=== PATIENT | female | born 1980 | race Caucasian/White ===

== ENCOUNTER 2017-11-29 08:08 | Observation (INO) | payer OTHER ==
[~2017-11-29] VITALS: Ht 160 cm; Wt 96.7 kg
[~2017-11-29 08:08] MED LIST: AMOX-559 PO; ATEN-1 PO; DEXT10TA9 PO; FLUO-177 PO; HYDR-2966 PO
--- NOTE | 2017-11-29 08:17 | ER Report ---
History and Physical Time Seen By MD: 08:15 Hx. of Stated Complaint: patient is reporting similar symptoms to an orbita cellulitis that she had 1 year ago. headache, drainage from right eye and pain when moving right eye HPI/ROS CHIEF COMPLAINT: Right eye pain HISTORY OF PRESENT ILLNESS: 37-year-old comes emergency Department today with several days of pain or right eye primarily extraocular motion some mild discharge mostly clear pain with motion some mild temporal right-sided headache that she's had these symptoms before was diagnosed with a orbital cellulitis unclear if it was septal or preseptal associated get IV antibiotics to see been hematology specialist last time did not see an hematology specialist this time she started getting the same symptoms came right to the emergency department no nausea vomiting diarrhea fever chills or additional complaints noted no visual changes REVIEW OF SYSTEMS: Respiratory: No cough, no dyspnea. Cardiovascular: No chest pain, no palpitations. Gastrointestinal: No vomiting, no abdominal pain. Musculoskeletal: No back pain. Remainder of the 14 system rev: Yes Allergies: Uncoded Allergies: DERMABOND (Adverse Reaction, Unknown, 10/04/16) Home Meds Reported Medications Amphet Asp/Amphet/D-Amphet (ADDERALL 10 MG TABLET) 10 Mg Tablet, 10 MG PO QDAY 10/04/16 Hydrochlorothiazide (HYDROCHLOROTHIAZIDE) 25 Mg Tablet, 1 TAB PO QDAY, TAB 10/04/16 Atenolol (ATENOLOL) 50 Mg Tablet, 25 TAB PO QDAY, TAB 10/04/16 Fluoxetine Hcl (FLUOXETINE HCL) 20 Mg Capsule, 60 MG PO QDAY, CAPSULE 10/04/16 Discontinued Scripts Amoxicillin/Pot Clav 875-125 Mg Tab (AUGMENTIN 875-125 TABLET) 1 Each Tablet, 1 TAB PO Q12H, #20 TAB Prov:ERIC REYES COMMODITY SPECIALIST 10/04/16 Reviewed Nurses Notes: Yes Old Medical Records Reviewed: Yes Hx Substance Use Disorder: Yes (OCC POT) Hx Alcohol Use: Yes (OCC) Constitutional Vital Sign - Last 24 Hours 11/29/17 11/29/17 11/29/17 11/29/17 08:11 09:43 10:30 11:21 Temp 97.8 Pulse 62 59 57 Resp 20 20 20 B/P (MAP) 189/112 193/109 (137) 178/108 (131) 157/99 (118) Pulse Ox 95 97 97 O2 Delivery Room Air Room Air Room Air Physical Exam General Appearance: [The patient is alert, has no immediate need for airway protection and no current signs of toxicity.] [ ] Eyes: Extraocular motor intact however pain with lateral gaze of the right eye visual acuity pending mild clear serous discharge noted from the eye no proptosis correctly looking Respiratory: Chest is non tender, lungs are clear to auscultation. Cardiac: regular rate and rhythm [ ] Gastrointestinal: Abdomen is soft and non tender, no masses, bowel sounds normal. Musculoskeletal: Neck: Neck is supple and non tender. Extremities have full range of motion and are non tender. Skin: No rashes or lesions. [ ] DIFFERENTIAL DIAGNOSIS: After history and physical exam differential diagnosis was considered for cellulitis or orbital cellulitis periorbital preseptal cellulitis sinus infection Medical Decision Making Data Points Result Diagram: 11/29/17 0823 11/29/17 0823 Laboratory Hematology Test 11/29/17 08:23 Red Blood Count 5.05 M/uL (4.17-5.56) Mean Corpuscular Volume 79.0 fL (80.0-96.0) Mean Corpuscular Hemoglobin 26.5 pg (26.0-33.0) Mean Corpuscular Hemoglobin Concent 33.6 g/dL (32.0-36.0) Red Cell Distribution Width 16.6 % (11.5-14.5) Mean Platelet Volume 7.5 fL (7.2-11.1) Neutrophils (%) (Auto) 68.0 % (39.4-72.5) Lymphocytes (%) (Auto) 24.6 % (17.6-49.6) Monocytes (%) (Auto) 6.1 % (4.1-12.4) Eosinophils (%) (Auto) 0.6 % (0.4-6.7) Basophils (%) (Auto) 0.7 % (0.3-1.4) Nucleated RBC Relative Count (auto) 0.1 /100WBC Neutrophils # (Auto) 5.1 K/uL (2.0-7.4) Lymphocytes # (Auto) 1.8 K/uL (1.3-3.6) Monocytes # (Auto) 0.5 K/uL (0.3-1.0) Eosinophils # (Auto) 0.0 K/uL (0.0-0.5) Basophils # (Auto) 0.1 K/uL (0.0-0.1) Nucleated RBC Absolute Count (auto) 0.01 K/uL Sodium Level 141 mmol/L (137-145) Potassium Level 4.3 mmol/L (3.5-5.0) Chloride Level 103 mmol/L (98-107) Carbon Dioxide Level 24 mmol/L (22-31) Blood Urea Nitrogen 11 mg/dl (7-18) Creatinine 0.70 mg/dl (0.52-1.04) Glomerular Filtration Rate Calc > 60.0 Random Glucose 97 mg/dl (75-110) Calcium Level 9.8 mg/dl (8.4-10.2) Total Bilirubin 0.3 mg/dl (0.2-1.3) Aspartate Amino Transf (AST/SGOT) 27 U/L (0-35) Alanine Aminotransferase (ALT/SGPT) 27 U/L (0-56) Alkaline Phosphatase 119 U/L (0-126) Total Protein 7.7 gm/dl (6.3-8.2) Albumin 4.4 g/dl (3.5-5.0) Chemistry Test 11/29/17 08:23 White Blood Count 7.5 k/uL (4.5-11.0) Red Blood Count 5.05 M/uL (4.17-5.56) Hemoglobin 13.4 g/dL (12.0-16.0) Hematocrit 39.9 % (34.0-47.0) Mean Corpuscular Volume 79.0 fL (80.0-96.0) Mean Corpuscular Hemoglobin 26.5 pg (26.0-33.0) Mean Corpuscular Hemoglobin Concent 33.6 g/dL (32.0-36.0) Red Cell Distribution Width 16.6 % (11.5-14.5) Platelet Count 347 K/uL (150-450) Mean Platelet Volume 7.5 fL (7.2-11.1) Neutrophils (%) (Auto) 68.0 % (39.4-72.5) Lymphocytes (%) (Auto) 24.6 % (17.6-49.6) Monocytes (%) (Auto) 6.1 % (4.1-12.4) Eosinophils (%) (Auto) 0.6 % (0.4-6.7) Basophils (%) (Auto) 0.7 % (0.3-1.4) Nucleated RBC Relative Count (auto) 0.1 /100WBC Neutrophils # (Auto) 5.1 K/uL (2.0-7.4) Lymphocytes # (Auto) 1.8 K/uL (1.3-3.6) Monocytes # (Auto) 0.5 K/uL (0.3-1.0) Eosinophils # (Auto) 0.0 K/uL (0.0-0.5) Basophils # (Auto) 0.1 K/uL (0.0-0.1) Nucleated RBC Absolute Count (auto) 0.01 K/uL Glomerular Filtration Rate Calc > 60.0 Calcium Level 9.8 mg/dl (8.4-10.2) Total Bilirubin 0.3 mg/dl (0.2-1.3) Aspartate Amino Transf (AST/SGOT) 27 U/L (0-35) Alanine Aminotransferase (ALT/SGPT) 27 U/L (0-56) Alkaline Phosphatase 119 U/L (0-126) Total Protein 7.7 gm/dl (6.3-8.2) Albumin 4.4 g/dl (3.5-5.0) ED Course/Re-evaluation ED Course ED clinical course 37-year-old female came in with pain with extraocular motion no visual acuity issues initial CAT scan looking for potential preseptal or orbital cellulitis came back showing irritation inflammation consistent with possible Graves' versus MS or pseudotumor or tumor process and medial rectus muscle of the right eye this was noted also prevalent in several months ago in the left eye unlikely this is infectious etiology more likely again this is either Graves' MS or some type of pseudotumor secondary to this we will go ahead and MRI her head and orbits were attempted for definitive diagnosis also showing some density issues within the head CT as well again concerning for potential MS Follow-up MRI does demonstrate consistent changes of either vasculitis atypical MS or demyelinating process the 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 David's are also consideration patient will be admitted today I consult with ophthalmology and neurology recommending 1000 mg of Solu- Medrol as an inpatient and then she'll follow-up with 5 days as an outpatient and neuro consult after patient understands the plan is resting comfortably at time of admission Decision to Disposition Date: November 29, 2017 Decision to Disposition Time: 14:34 Depart Departure Latest Vital Signs Vital Signs Date Time Temp Pulse Resp B/P (MAP) Pulse Ox O2 Delivery O2 Flow Rate FiO2 11/29/17 11:21 57 20 157/99 (118) 97 Room Air 11/29/17 08:11 97.8 Impression: Primary Impression: Pseudotumor Condition: Condition Unchanged Disposition: Admitted from ER Referrals: JAMIE WEEMS MD (PCP) BENJAMIN ALLEN MD November 29, 2017 08:17
[2017-11-29 08:31] LABS: PLATELET COUNT, AUTOMATED 347 K/uL (150-450)
[2017-11-29] MEDS ORDERED: IOPAMIDOL 76% 75 ML INFUS BTL 75 ML ONE (08:32)
[2017-11-29] MEDS ORDERED: HYDROmorphone* 1 MG/ML 1 MG/ML ML IVP ONE (09:10)
[2017-11-29] MEDS ORDERED: cloNIDine HCL 0.1 MG TAB PO ONE (10:00)
--- NOTE | 2017-11-29 10:28 | RADIOLOGY IMAGING REPORT ---
FACILITY: [facility] PATIENT NAME: Tracy Lombardi : 1980 MR: [id number] V: [id number] EXAM DATE: ORDERING PHYSICIAN: BENJAMIN ALLEN TECHNOLOGIST: Location: [facility] Patient: Tracy Lombardi : 1980 Visit/Account:[id number] Date of Sevice: 11/29/2017 EXAMINATION: Head CT without intravenous contrast History: Right eye pain with extraocular motion. TECHNIQUE: Contiguous axial images were obtained from the skull base to the vertex without intraven ous contrast. One of the following dose optimization techniques was utilized in the performance of th is exam: Automated exposure control; adjustment of the mA and/or kV according to the patient's size; or use of an iterative reconstruction technique. Specific details can be referenced in the facility 's radiology CT exam operational policy. COMPARISON STUDIES: none FINDINGS: Visualized mastoid air cells / paranasal sinuses: negative Calvarium and scalp: negative White matter: Mild patchy areas of low-attenuation in the white matter. Dural venous sinuses / arterial structures: negative Ventricles / sulci / fissures: negative Masses / hemorrhage / midline shift: negative Extra-axial spaces: negative IMPRESSION: 1. No evidence of an intracranial mass, hemorrhage or acute ischemia. 2. There are several patchy areas of low density in the white matter which are nonspecific. These m ay represent sequela of migraine headaches, prior trauma or demyelination. Prior episode of ischemia could also be considered. MRI could further evaluate. Report Dictated By: Baron Stern MD at 11/29/2017 10:22 AM Report E-Signed By: Baron Stern MD at 11/29/2017 10:25 AM [id number]
--- NOTE | 2017-11-29 10:39 | RADIOLOGY IMAGING REPORT ---
[place] [facility] [place] NAME: Tracy Lombardi : 1980 MR: [id number] V: [id number] EXAM DATE: ORDERING PHYSICIAN: BENJAMIN ALLEN TECHNOLOGIST: Location: [facility] [place] Patient: Tracy Lombardi : 1980 Visit/Account:[id number] Date of Sevice: 11/29/2017 EXAMINATION: Orbit CT with IV contrast History: Right eye pain with extraocular movement COMPARISON STUDIES: 10/04/2016 TECHNIQUE: Axial images were obtained from the superior aspect of the orbits through the inferior as pect of mandible. Coronal reformatted images were obtained from the axial source data. No IV contrast was administered. One of the following dose optimization techniques was utilized in the performance of this exam: Automated exposure control; adjustment of the mA and/or kV according to the patient's s ize; or use of an iterative reconstruction technique. Specific details can be referenced in the [facility]'s radiology CT exam operational policy. Contrast: 75 of IV [id number] FINDINGS: There is enlargement of the medial rectus muscle on the right. The orbits are otherwise negative. U beena review of the prior study, the left medial rectus appears enlarged but now has normal caliber. T he retro-orbital fat and optic nerves appear normal. Globes are unremarkable. IMPRESSION: Enlargement of the right medial rectus muscle which may be due to graves I disease or idi opathic orbital inflammatory disease. Clinical correlation is suggested. Report Dictated By: Baron Stern MD at 11/29/2017 10:25 AM Report E-Signed By: Baron Stern MD at 11/29/2017 10:35 AM WSN:[id number]
[2017-11-29] MEDS ORDERED: NS(*) 0.9% 1000 ML BAG 1,000 ML IV ONE (11:25)
[2017-11-29] MEDS ORDERED: GADOBENATE 529MG/1ML 15ML VIAL IVP ONE (12:00)
--- NOTE | 2017-11-29 13:45 | RADIOLOGY IMAGING REPORT ---
FACILITY: [facility] PATIENT NAME: Tracy Lombardi : 1980 MR: [id number] V: [id number] EXAM DATE: ORDERING PHYSICIAN: BENJAMIN ALLEN TECHNOLOGIST: Location: [facility] Patient: Tracy Lombardi : 1980 Visit/Account:[id number] Date of Sevice: 11/29/2017 BRAIN W W/O CONTRAST, ORBIT FACE NECK W W/O CONTRAST Provided history: Right orbital pain. Abnormal head CT. Rule out MS. Additional pertinent history: none TECHNIQUE: Multiplanar multisequence brain MRI was performed without and with intravenous contrast Contrast dose: 15 mL of MultiHance. Additional focused sequences: HIgh resolution axial and coronal sequences on the orbits and optical pathways COMPARISON STUDIES: CT earlier today. FINDINGS: Brain volume: Normal Acute ischemia: None Chronic cortical and ganglionic ischemia: none significant Hemorrhage: None Masses / edema: None White matter lesions : There are multiple peripheral small and moderate sized T2 hyperintensities in both cerebral hemispheres, much more than is typical for age. There is sparing of the periventricula r white matter and the subcortical U fibers. There is also sparing of brainstem and posterior fossa. Temporal lobes are mostly spared. These do not demonstrate enhancement after gadolinium. Vessels: Normal Extra-axial: None Calvarium / scalp: Negative Skull base / infratemporal fossa: negative Visualized sinuses / orbits / upper neck: Detailed study of the orbits reveals prominent asymmetric fusiform enlargement and hyperintensity involving the right medial rectus muscle which demonstrates i ntense enhancement after gadolinium. There is contiguous abnormal enhancement of the tendon as well. There is also abnormal indistinct adjacent enhancement in the retrobulbar fat and along the surface o f the optic nerve sheath. The rest of the extraocular muscles are normal. Lacrimal gland is normal. G lobes are normal. There is no posterior extension to involve the cavernous sinus. IMPRESSION: 1. The brain reveals no evidence of hemorrhage, mass or acute ischemia. White matter changes are muc h more than is typical. The pattern would be more consistent with small vessel disease than demyelina tion. Considerations would include sequela of vasculitis,, gated migraine, possibly atypical MS. 2. 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 Sarcoid and David's are considerations but also usually bilater al. A lymphoproliferative process is possible but I think less likely. Pertinent negative is absence of extension to involve the cavernous sinus. Report Dictated By: Sheng Peralta MD at 11/29/2017 1:20 PM Report E-Signed By: Sheng Peralta MD at 11/29/2017 1:40 PM WSN:[id number]
--- NOTE | 2017-11-29 13:46 | RADIOLOGY IMAGING REPORT ---
FACILITY: [facility] [place] PATIENT NAME: Tracy Lombardi : 1980 MR: [id number] V: [id number] EXAM DATE: ORDERING PHYSICIAN: BENJAMIN ALLEN TECHNOLOGIST: Location: [facility] [place] Patient: Tracy Lombardi : 1980 Visit/Account:[id number] Date of Sevice: 11/29/2017 BRAIN W W/O CONTRAST, ORBIT FACE NECK W W/O CONTRAST Provided history: Right orbital pain. Abnormal head CT. Rule out MS. Additional pertinent history: none TECHNIQUE: Multiplanar multisequence brain MRI was performed without and with intravenous contrast Contrast dose: 15 mL of MultiHance. Additional focused sequences: HIgh resolution axial and coronal sequences on the orbits and optical pathways COMPARISON STUDIES: CT earlier today. FINDINGS: Brain volume: Normal Acute ischemia: None Chronic cortical and ganglionic ischemia: none significant Hemorrhage: None Masses / edema: None White matter lesions : There are multiple peripheral small and moderate sized T2 hyperintensities in both cerebral hemispheres, much more than is typical for age. There is sparing of the periventricula r white matter and the subcortical U fibers. There is also sparing of brainstem and posterior fossa. Temporal lobes are mostly spared. These do not demonstrate enhancement after gadolinium. Vessels: Normal Extra-axial: None Calvarium / scalp: Negative Skull base / infratemporal fossa: negative Visualized sinuses / orbits / upper neck: Detailed study of the orbits reveals prominent asymmetric fusiform enlargement and hyperintensity involving the right medial rectus muscle which demonstrates i ntense enhancement after gadolinium. There is contiguous abnormal enhancement of the tendon as well. There is also abnormal indistinct adjacent enhancement in the retrobulbar fat and along the surface o f the optic nerve sheath. The rest of the extraocular muscles are normal. Lacrimal gland is normal. G lobes are normal. There is no posterior extension to involve the cavernous sinus. IMPRESSION: 1. The brain reveals no evidence of hemorrhage, mass or acute ischemia. White matter changes are muc h more than is typical. The pattern would be more consistent with small vessel disease than demyelina tion. Considerations would include sequela of vasculitis,, gated migraine, possibly atypical MS. 2. 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 Sarcoid and David's are considerations but also usually bilater al. A lymphoproliferative process is possible but I think less likely. Pertinent negative is absence of extension to involve the cavernous sinus. Report Dictated By: Sheng Peralta MD at 11/29/2017 1:20 PM Report E-Signed By: Sheng Peralta MD at 11/29/2017 1:40 PM WSN:[id number]
[2017-11-29] MEDS ORDERED: ACETAMINOPHEN 500 MG TAB PO ONE (15:00)
[2017-11-29 15:13] VITALS: BP 192/114
[2017-11-29] MEDS ORDERED: ATEN-1 PO (15:20)
[2017-11-29] MEDS ORDERED: HYDR-2966 PO (15:21)
--- NOTE | 2017-11-29 16:15 | History & Physical ---
History of Present Illness Chief Complaint Right eye pain History of Present Illness This patient presented to the emergency room complaining of right eye pain and difficulty with right eye movement. Her symptoms started abruptly last evening. History Problems: (1) Cellulitis and abscess of face Status: Acute Home Meds Reported Medications Hydrochlorothiazide (HYDROCHLOROTHIAZIDE) 25 Mg Tablet, 0.5 TAB PO QPM, TAB 11/29/17 Atenolol (ATENOLOL) 50 Mg Tablet, 0.5 TAB PO QPM, TAB 11/29/17 Hydrochlorothiazide (HYDROCHLOROTHIAZIDE) 25 Mg Tablet, 1.5 TAB PO QDAY, TAB 10/04/16 Atenolol (ATENOLOL) 50 Mg Tablet, 37.5 TAB PO QAM, TAB 10/04/16 Discontinued Reported Medications Amphet Asp/Amphet/D-Amphet (ADDERALL 10 MG TABLET) 10 Mg Tablet, 10 MG PO QDAY 10/04/16 Fluoxetine Hcl (FLUOXETINE HCL) 20 Mg Capsule, 60 MG PO QDAY, CAPSULE 10/04/16 Discontinued Scripts Amoxicillin/Pot Clav 875-125 Mg Tab (AUGMENTIN 875-125 TABLET) 1 Each Tablet, 1 TAB PO Q12H, #20 TAB Prov:ERIC REYES SAW SHARPENER 10/04/16 Allergies: Uncoded Allergies: DERMABOND (Adverse Reaction, Unknown, 10/04/16) Hx Smoking: No Caffeine Intake: Coffee Caffeine/Cups Per Day: TWO CUPS Hx Alcohol Use: Yes (OCC) Hx Substance Use Disorder: Yes (OCC POT) Review of Systems All Systems Reviewed/Normal: Yes, Except as Noted Musculoskeletal: Pain Exam Vital Signs Vital Signs Date Time Temp Pulse Resp B/P (MAP) Pulse Ox O2 Delivery O2 Flow Rate FiO2 11/29/17 15:13 97.6 58 16 192/114 (140) 98 Room Air Neuro: Other (Right eye palsey.) Eyes: PERRLA Cardiovascular: Regular Rate and Rhythm Respiratory: Clear to Auscultation Extremities: No Edema Integumentary: No Cyanosis Medical Decision Making Data Points Result Diagram: 11/29/1782211/29/17822 EKG / Imaging Imaging MRI brain and orbits reviewed. Assessment and Plan Problems: (1) White matter abnormality on MRI of brain Assessment & Plan: Her MRI showed findings consistent with white matter changes and were described as vasculitis or demyelinating process. The emergency room physician did speak with Dr. Giordano (neurology), who recommended Solu-Medrol 1gm daily for 5 days and follow up early next week. We did place her on observation overnight to be sure she tolerates this large dose, but she can likely continue this infusions through special procedures. (2) Pseudotumor Status: Acute Assessment & Plan: These results were reviewed with ophthalmology and neurology from the emergency room. The recommendations are as above. Venous Thromboembolism Antithrombotics Is Pt On Any Antithrombotics?: No Exam Sepsis Risk: No Definite Risk NAPOLEON GODOY DO November 29, 2017 16:15
[2017-11-29] MEDS ORDERED: methylPREDNIS SUC* 1000 MG/8ML 1,000 MG in NS(*) 0.9% 250 ML BAG 250 ML IVPB SCH (16:40)
[2017-11-29] MEDS ORDERED: HYDROCHLOROTHIAZIDE 25 MG TAB PO SCH (17:00)
[2017-11-29] MEDS ORDERED: ATENOLOL 50 MG TAB PO SCH (17:00)
[2017-11-29 20:40] VITALS: BP 139/104
[2017-11-30 05:12] VITALS: BP 130/102
[2017-11-30 07:07] VITALS: BP 136/116
[2017-11-30 07:17] VITALS: BP 138/98
[2017-11-30] MEDS ORDERED: LORazepam 2 MG/ML VIAL IVP PRN (09:00)
[2017-11-30] MEDS ORDERED: ATENOLOL 50 MG TAB PO SCH (09:00)
[2017-11-30] MEDS ORDERED: methylPREDNIS SUC* 1000 MG/8ML 1,000 MG in NS(*) 0.9% 250 ML BAG 250 ML IVPB SCH (09:00)
[2017-11-30] MEDS ORDERED: HYDROCHLOROTHIAZIDE 25 MG TAB PO SCH (09:00)
--- NOTE | 2017-11-30 09:56 | Hospitalist Progress Note ---
Subjective Progress Notes Subjective She reports feeling much improved. Pain resolved. Physical Exam Vital Signs Date Time Temp Pulse Resp B/P (MAP) Pulse Ox O2 Delivery O2 Flow Rate FiO2 11/30/17 09:37 94 Room Air 11/30/17 07:17 138/98 (111) 11/30/17 07:07 98.1 76 16 Intake and Output 12/01/17 07:00 Intake Total 120 ml Balance 120 ml Intake Oral 120 ml General Appearance: Alert, Awake Neuro: Other (no focal motor deficits noted) Eyes: Other (pupils equal and reactive/she now appears to have essentially normal EOM bilaterally/she does still try to close her right eyelid with right lateral gaze) Cardiovascular: Regular Rate and Rhythm Respiratory: Clear to Auscultation Psych: Alert & Oriented X3 Result Diagram: 11/29/1782211/29/17822 Assessment and Plan Problems: (1) White matter abnormality on MRI of brain Assessment & Plan: Her MRI showed findings consistent with probable pseudotumor involving right medial rectus. She also has some white matter changes which appeared to be more prominent than expected. Differential includes atypical MS, vasculitis, small vessel ischemia. The emergency room physician did speak with Dr. Giordano (neurology), who recommended Solu-Medrol 1gm daily for 5 days and close follow up early next week. We did place her on observation overnight to be sure she tolerates this large dose, but she can likely continue this infusion through special procedures. (2) Pseudotumor Status: Acute Assessment & Plan: These results were reviewed with ophthalmology and neurology from the emergency room. The recommendations are as above. Exam Sepsis Risk: No Definite Risk JANAY HURD MD November 30, 2017 09:56
[2017-11-30 10:52] VITALS: BP 130/96
[2017-11-30] MEDS ORDERED: LOR1 PO (11:04)
[2017-11-30] MEDS ORDERED: PRED20TA6 PO ×2 (11:04→11:05)
--- NOTE | 2017-11-30 11:16 | Hospitalist Depart ---
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 She also has some white matter changes which appeared to be more prominent than expected. Differential includes atypical MS, vasculitis, small vessel ischemia. It appears she may have had a similar, but less severe episode in the Spring of 2016 as well. The emergency room physician did speak with Dr. Giordano (neurology in [place], [place]), who recommended Solu-Medrol 1gm daily for 5 days and close follow up early next week. We did admit her and place her on observation overnight to be sure she tolerated this large dose. She did do fairly well with the infusions. She will complete the 5 days as an outpatient through [facility]. She will then start prednisone 80mg daily. She will follow up with her primary care physician at the [facility] early next week and arrange for neurology/ ophthalmology follow up at that time. She should be able to start a weaning regimen of her steroids as well. (2) Pseudotumor Status: Acute Hospital Course & Plan: Her results/findings were reviewed with ophthalmology and neurology from the [facility] emergency room. Their recommendations are as noted above. Departure Weight (Pounds): 213 Weight (Ounces): 3.0 Result Diagram: 11/29/17 0823 11/29/17 0823 Item Value Date Time Albumin 4.4 g/dl 11/29/17 0823 Total Protein 7.7 gm/dl 11/29/17 0823 Alkaline Phosphatase 119 U/L 11/29/17 0823 Alanine Aminotransferase (ALT/SGPT) 27 U/L 11/29/17 0823 Aspartate Amino Transf (AST/SGOT) 27 U/L 11/29/17 0823 Total Bilirubin 0.3 mg/dl 11/29/17 0823 Calcium Level 9.8 mg/dl 11/29/17 0823 Imaging PATIENT NAME: Tracy Lombardi : 1980 MR: [id number] V: [id number] EXAM DATE: ORDERING PHYSICIAN: BENJAMIN ALLEN TECHNOLOGIST: Location: [facility] Patient: Tracy Lombardi : 1980 Visit/Account:[id number] Date of Sevice: 11/29/2017 EXAMINATION: Orbit CT with IV contrast History: Right eye pain with extraocular movement COMPARISON STUDIES: 10/04/2016 TECHNIQUE: Axial images were obtained from the superior aspect of the orbits through the inferior aspect of mandible. Coronal reformatted images were obtained from the axial source data. No IV contrast was administered. One of the following dose optimization techniques was utilized in the performance of this exam: Automated exposure control; adjustment of the mA and/or kV according to the patient's size; or use of an iterative reconstruction technique. Specific details can be referenced in the facility's radiology CT exam operational policy. Contrast: 75 of IV Isovue-370 FINDINGS: There is enlargement of the medial rectus muscle on the right. The orbits are otherwise negative. Upon review of the prior study, the left medial rectus appears enlarged but now has normal caliber. The retro-orbital fat and optic nerves appear normal. Globes are unremarkable. IMPRESSION: Enlargement of the right medial rectus muscle which may be due to graves I disease or idiopathic orbital inflammatory disease. Clinical correlation is suggested. Report Dictated By: Baron Stern MD at 11/29/2017 10:25 AM Report E-Signed By: Baron Stern MD at 11/29/2017 10:35 AM WSN:[id number] PATIENT NAME: Tracy Lombardi : 1980 MR: [id number] V: [id number] EXAM DATE: ORDERING PHYSICIAN: BENJAMIN ALLEN TECHNOLOGIST: Location: [facility] Patient: Tracy Lombardi : 1980 Visit/Account:[id number] Date of Sevice: 11/29/2017 EXAMINATION: Head CT without intravenous contrast History: Right eye pain with extraocular motion. TECHNIQUE: Contiguous axial images were obtained from the skull base to the vertex without intravenous contrast. One of the following dose optimization techniques was utilized in the performance of this exam: Automated exposure control; adjustment of the mA and/or kV according to the patient's size; or use of an iterative reconstruction technique. Specific details can be referenced in the facility's radiology CT exam operational policy. COMPARISON STUDIES: none FINDINGS: Visualized mastoid air cells / paranasal sinuses: negative Calvarium and scalp: negative White matter: Mild patchy areas of low-attenuation in the white matter. Dural venous sinuses / arterial structures: negative Ventricles / sulci / fissures: negative Masses / hemorrhage / midline shift: negative Extra-axial spaces: negative IMPRESSION: 1. No evidence of an intracranial mass, hemorrhage or acute ischemia. 2. There are several patchy areas of low density in the white matter which are nonspecific. These may represent sequela of migraine headaches, prior trauma or demyelination. Prior episode of ischemia could also be considered. MRI could further evaluate. Report Dictated By: Baron Stern MD at 11/29/2017 10:22 AM Report E-Signed By: Baron Stern MD at 11/29/2017 10:25 AM WSN:[id number] PATIENT NAME: Tracy Lombardi : 1980 MR: [id number] V: [id number] EXAM DATE: ORDERING PHYSICIAN: BENJAMIN ALLEN TECHNOLOGIST: Location: [facility] Patient: Tracy Lombardi : 1980 Visit/Account:[id number] Date of Sevice: 11/29/2017 BRAIN W W/O CONTRAST, ORBIT FACE NECK W W/O CONTRAST Provided history: Right orbital pain. Abnormal head CT. Rule out MS. Additional pertinent history: none TECHNIQUE: Multiplanar multisequence brain MRI was performed without and with intravenous contrast Contrast dose: 15 mL of MultiHance. Additional focused sequences: HIgh resolution axial and coronal sequences on the orbits and optical pathways COMPARISON STUDIES: CT earlier today. FINDINGS: Brain volume: Normal Acute ischemia: None Chronic cortical and ganglionic ischemia: none significant Hemorrhage: None Masses / edema: None White matter lesions : There are multiple peripheral small and moderate sized T2 hyperintensities in both cerebral hemispheres, much more than is typical for age. There is sparing of the periventricular white matter and the subcortical U fibers. There is also sparing of brainstem and posterior fossa. Temporal lobes are mostly spared. These do not demonstrate enhancement after gadolinium. Vessels: Normal Extra-axial: None Calvarium / scalp: Negative Skull base / infratemporal fossa: negative Visualized sinuses / orbits / upper neck: Detailed study of the orbits reveals prominent asymmetric fusiform enlargement and hyperintensity involving the right medial rectus muscle which demonstrates intense enhancement after gadolinium. There is contiguous abnormal enhancement of the tendon as well. There is also abnormal indistinct adjacent enhancement in the retrobulbar fat and along the surface of the optic nerve sheath. The rest of the extraocular muscles are normal. Lacrimal gland is normal. Globes are normal. There is no posterior extension to involve the cavernous sinus. IMPRESSION: 1. The brain reveals no evidence of hemorrhage, mass or acute ischemia. White matter changes are much more than is typical. The pattern would be more consistent with small vessel disease than demyelination. Considerations would include sequela of vasculitis,, gated migraine, possibly atypical MS. 2. 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 Sarcoid and David's are considerations but also usually bilateral. A lymphoproliferative process is possible but I think less likely. Pertinent negative is absence of extension to involve the cavernous sinus. Report Dictated By: Sheng Peralta MD at 11/29/2017 1:20 PM Report E-Signed By: Sheng Peralta MD at 11/29/2017 1:40 PM WSN:[id number] Condition: Improved Discharge: Home Time Spent: > 30 min Discharge Instructions Home Meds Active Scripts Methylprednisolone Sod Succ (SOLU-MEDROL 1,000 MG VIAL) 1,000 Mg/8 Ml Soln, 1000 MG IV DAILY for 3 Days, VIAL 0 Refills This will be given through [facility]. Prov:JANAY HURD MD 11/30/17 Prednisone (PREDNISONE) 20 Mg Tablet, 80 MG PO QDAY, #40 TAB 0 Refills To start on Monday12/05/17 Prov:JANAY HURD MD 11/30/17 Lorazepam (LORAZEPAM) 1 Mg Tab, 1 MG PO Q6H Y for ANXIETY/INSOMNIA, #14 TAB 0 Refills Prov:JANAY HURD MD 11/30/17 Reported Medications Hydrochlorothiazide (HYDROCHLOROTHIAZIDE) 25 Mg Tablet, 0.5 TAB PO QPM, TAB 11/29/17 Atenolol (ATENOLOL) 50 Mg Tablet, 0.5 TAB PO QPM, TAB 5/2/18 Hydrochlorothiazide (HYDROCHLOROTHIAZIDE) 25 Mg Tablet, 1.5 TAB PO QDAY, TAB 10/04/16 Atenolol (ATENOLOL) 50 Mg Tablet, 37.5 TAB PO QAM, TAB 10/04/16 Discontinued Reported Medications Amphet Asp/Amphet/D-Amphet (ADDERALL 10 MG TABLET) 10 Mg Tablet, 10 MG PO QDAY 10/04/16 Fluoxetine Hcl (FLUOXETINE HCL) 20 Mg Capsule, 60 MG PO QDAY, CAPSULE 10/04/16 Discontinued Scripts Amoxicillin/Pot Clav 875-125 Mg Tab (AUGMENTIN 875-125 TABLET) 1 Each Tablet, 1 TAB PO Q12H, #20 TAB Prov:ERIC REYES MAGNETIC TESTER 10/04/16 Diet: Regular Activity: As Tolerated Special Instructions: Follow up with [facility] for your infusion starting tomorrow (12/01/17) at 1300, please show up at 12:45. Return to [facility] ER if any problems. The prednisone will start on Monday12/05/17. Copies to: [facility] Venous Thromboembolism Antithrombotics Is Pt On Any Antithrombotics?: No JANAY HURD MD November 30, 2017 11:16
[2017-11-30] MEDS ORDERED: [UNRECOGNIZED DRUG - CODE] IV (11:17)
[2017-12-01] MEDS ORDERED: INFLUENZA VIRUS VAC 0.5 ML SYR IM ONLY ONE (15:55)
== END 2017-11-30 11:05 | disposition home or self-care (01) ==
LOC: ER 08:12 → INTOOBSV 14:42 → MED 14:42
PROVIDERS: ADMIT Family Medicine; ATTEND Family Medicine
DX: H05.111 Granuloma of right orbit (principal); R93.8 Abnormal findings on diagnostic imaging of other specified body structures
CPT/HCPCS: 70450; 70481; 70543; 70553; 85025; 99285; A9577; G0378; J2930; J7030; J7050; Q9967; 82040; 82247; 82310; 82374; 82435; 82565; 82947; 84075; 84132; 84155; 84295; 84450; 84460; 84520

== ENCOUNTER 2017-12-01 14:30 | Outpatient (RCR) | payer OTHER ==
[~2017-12-01 14:30] MED LIST changes: +LOR1 PO; +PRED20TA6 PO; +[UNRECOGNIZED DRUG - CODE] IV
[2017-12-01 14:58] VITALS: BP 125/81
[2017-12-01] MEDS: methylPREDNIS SUC* 1000 MG/8ML 1,000 MG in NS(*) 0.9% 250 ML BAG 250 ML IV PRN (15:00)
[2017-12-01] MEDS ORDERED: LIDOCAINE/SOD BICARB 8.4% SYR ID PRN (15:15)
[2017-12-01] MEDS ORDERED: DEXTROSE 5%(*) 100 ML BAG 100 ML IVPB PRN (15:15)
[2017-12-01] MEDS: NS(*) 0.9% 100 ML BAG 100 ML IVPB PRN (16:26)
[2017-12-01 17:03] VITALS: BP 136/84
[2017-12-02] MEDS: NS(*) 0.9% 100 ML BAG 100 ML IVPB PRN (14:19)
[2017-12-02 14:23] VITALS: BP 138/85
[2017-12-02] MEDS: methylPREDNIS SUC* 1000 MG/8ML 1,000 MG in NS(*) 0.9% 250 ML BAG 250 ML IV PRN (14:29)
[2017-12-02 16:00] VITALS: BP 149/89
[2017-12-03 14:25] VITALS: BP 137/82
[2017-12-03] MEDS: NS(*) 0.9% 100 ML BAG 100 ML IVPB PRN (14:36)
[2017-12-03] MEDS: methylPREDNIS SUC* 1000 MG/8ML 1,000 MG in NS(*) 0.9% 250 ML BAG 250 ML IV PRN (14:37)
[2017-12-03 15:57] VITALS: BP 142/92
== END 2017-12-28 10:52 | disposition home or self-care (01) ==
LOC: SPU 14:30
PROVIDERS: ATTEND Family Medicine
DX: H05.119 Granuloma of unspecified orbit (principal)
CPT/HCPCS: 96365; 96366; J2930; J7050

== ENCOUNTER → 2018-03-30 | Outpatient (CLI) | payer OTHER | LOC: LAB 15:08 | PROVIDERS: ATTEND Obstetrics & Gynecology | DX: N92.6 Irregular menstruation, unspecified (principal) | CPT/HCPCS: 36415; 84702 ==

== ENCOUNTER → 2018-04-23 | Outpatient (CLI) | payer MEDICAID ==
[2018-04-23 12:26] LABS: PLATELET COUNT, AUTOMATED 430 K/uL (150-450)
--- NOTE | 2018-04-23 12:50 | EKG ---
FACILITY: [facility] [place] PATIENT NAME: LYLY COON : [id number] MR: [id number] V: [id number] EXAM DATE: ORDERING PHYSICIAN: KATRIN FIORE TECHNOLOGIST: NEWTON Smith Reason : HYPERTENSION Blood Pressure : / mmHG Vent. Rate : 083 BPM Atrial Rate : 083 BPM P-R Int : 140 ms QRS Dur : 078 ms QT Int : 374 ms P-R-T Axes : 072 054 047 degrees QTc Int : 439 ms Normal sinus rhythm Nonspecific T wave abnormality Abnormal ECG No previous ECGs available Confirmed by KATRIN ACEVEDO ([id number]) on 04/23/2018 3:03:33 PM Referred By: FLOYD NOWAK Confirmed By:KATRIN ACEVEDO
== END ==
LOC: LAB 09:46
PROVIDERS: ATTEND Obstetrics & Gynecology
DX: Z34.91 Encounter for supervision of normal pregnancy, unspecified, first trimester (principal); I10 Essential (primary) hypertension
CPT/HCPCS: 36415; 81001; 82040; 82247; 82310; 82374; 82435; 82565; 82570; 82947; 83036; 84075; 84132; 84155; 84156; 84295; 84443; 84450; 84460; 84520; 85025; 86592; 86703; 86762; 86850; 86900; 86901; 87088; 87340

== ENCOUNTER → 2018-04-25 | Outpatient (CLI) | payer MEDICAID ==
[~2018-04-25] MED LIST changes: +FLU60SYR36 IM; +NIFE-15 PO
== END ==
LOC: LAB 10:56
PROVIDERS: ATTEND Student in an Organized Health Care Education/Training Program
DX: Z34.91 Encounter for supervision of normal pregnancy, unspecified, first trimester (principal)
CPT/HCPCS: 87491; 87591

== ENCOUNTER → 2018-05-23 | Outpatient (CLI) | payer MEDICAID ==
[~2018-05-23] MED LIST changes: +ASPI81TA94 PO; +PNV1COMB5
== END ==
LOC: LAB 14:00
PROVIDERS: ATTEND Student in an Organized Health Care Education/Training Program
DX: O16.2 Unspecified maternal hypertension, second trimester (principal); O99.212 Obesity complicating pregnancy, second trimester
CPT/HCPCS: 36415; 82950

== ENCOUNTER → 2018-06-12 | Outpatient (CLI) | payer MEDICAID ==
[~2018-06-12] MED LIST changes: -ASPI81TA94 PO; -PNV1COMB5
== END ==
LOC: LAB 13:43
PROVIDERS: ATTEND Student in an Organized Health Care Education/Training Program
DX: O99.810 Abnormal glucose complicating pregnancy (principal)
CPT/HCPCS: 36415; 82951; 82952

== ENCOUNTER → 2018-07-01 | Outpatient (CLI) | payer MEDICAID ==
[~2018-07-01] VITALS: Ht 160 cm; Wt 102.1 kg
[~2018-07-01] MED LIST changes: +ASPI81TA94 PO; +PNV1COMB5
[2018-07-01 10:19] VITALS: BP 140/89
== END ==
LOC: L&D 09:32 → OB 09:32 → UNDOADMOB 09:32 → UNDODISOB 12:17 → EDSTATUS 07-06 07:00
PROVIDERS: ATTEND Obstetrics & Gynecology
DX: O26.892 Other specified pregnancy related conditions, second trimester (principal); R03.0 Elevated blood-pressure reading, without diagnosis of hypertension; R60.0 Localized edema; Z3A.20 20 weeks gestation of pregnancy
CPT/HCPCS: 36415; 82570; 84156; 85027; G0378; G0379; 82040; 82247; 82310; 82374; 82435; 82565; 82947; 84075; 84132; 84155; 84295; 84450; 84460; 84520

== ENCOUNTER → 2018-08-15 | Outpatient (CLI) | payer MEDICAID | LOC: LAB 09:29 | PROVIDERS: ATTEND Student in an Organized Health Care Education/Training Program | DX: O99.810 Abnormal glucose complicating pregnancy (principal) | CPT/HCPCS: 36415; 82951; 82952 ==

== ENCOUNTER → 2018-08-30 | Outpatient (CLI) | payer MEDICAID ==
--- NOTE | 2018-08-30 11:13 | RADIOLOGY IMAGING REPORT ---
FACILITY: [facility] PATIENT NAME: Tracy Lombardi : 1980 MR: [id number] V: [id number] EXAM DATE: ORDERING PHYSICIAN: FLOYD NOWAK TECHNOLOGIST: Location: [facility] [place] Patient: Tracy Lombardi : 1980 Visit/Account:[id number] Date of Sevice: 08/30/2018 [facility] [place] H[place]ORY: Hypertension COMPARISON: None. TECHNIQUE: Transabdominal imaging was performed for assessment of the fetus and maternal pelvic s tructures. Transvaginal imaging was not performed. FINDINGS: Intrauterine gestations: One. presentation: Variable. heart rate: 147 bpm. Amniotic fluid volume: ; JOHN PAUL 9.4 cm; MVP 5.56 cm. Placenta: Fundal. Uterus: Gravid, otherwise grossly unremarkable where visualized. Maternal adnexa/ovaries: Grossly unremarkable, ovaries not visualized. Cervix: Grossly long and closed. Gestational Parameters: BPD: 7.49 cm, 71st percentile HC: 27.24 cm, 38th percentile AC: 5.12 cm, 54th percentile FL: 5.59 cm, 47th percentile Average ultrasound age (AUA): 29 weeks/ five days Estimated age based on LMP: 29 weeks/ zero days Estimated weight (EFW): 1395 grams +/- 204 grams, consistent with the 54th percentile Anatomic Survey: Anatomic survey not performed. IMPRESSION: Single viable fetus in variable presentation with an estimated gestational age by measurements of 29 weeks and five days. LMP estimated gestational age 29 weeks and zero days, estimated weight 13 95 g, 54th percentile Report Dictated By: Amy Velázquez MD at 08/30/2018 11:05 AM Report E-Signed By: Amy Velázquez MD at 08/30/2018 11:08 AM JANYN:RONNY
== END ==
LOC: US 08:15
PROVIDERS: ATTEND Student in an Organized Health Care Education/Training Program
DX: Z02.9 Encounter for administrative examinations, unspecified (principal)

== ENCOUNTER → 2018-09-13 | Outpatient (CLI) | payer MEDICAID ==
[2018-09-13 09:49] LABS: PLATELET COUNT, AUTOMATED 288 K/uL (150-450)
== END ==
LOC: LAB 09:10
PROVIDERS: ATTEND Student in an Organized Health Care Education/Training Program
DX: L29.9 Pruritus, unspecified (principal)
CPT/HCPCS: 36415; 82040; 82247; 82310; 82374; 82435; 82565; 82947; 84075; 84132; 84155; 84295; 84450; 84460; 84520; 85025

== ENCOUNTER → 2018-09-27 | Outpatient (CLI) | payer MEDICAID ==
--- NOTE | 2018-09-27 15:50 | RADIOLOGY IMAGING REPORT ---
[place] [facility] [place] NAME: Tracy Lombardi : 1980 MR: [id number] V: [id number] EXAM DATE: ORDERING PHYSICIAN: FLOYD NOWAK TECHNOLOGIST: Location: [facility] [place] Patient: Tracy Lombardi : 1980 Visit/Account:[id number] Date of Sevice: 09/27/2018 [facility] [place]ORY: htn COMPARISON: TECHNIQUE: Transabdominal imaging was performed for assessment of the fetus and maternal pelvic s tructures. Transvaginal imaging was not performed. FINDINGS: Intrauterine gestations: One. presentation: cephalic. heart rate: 129 bpm. Amniotic fluid volume: not evaluated Placenta: fundal. Uterus: Gravid, otherwise grossly unremarkable where visualized. Maternal adnexa/ovaries: not evaluated. Cervix: not evaluated. Gestational Parameters: BPD: 8.59cm, 86% HC: 31.42cm,72% AC: 28.39cm, 34% FL: 6.29cm,26% Average ultrasound age (AUA): 33 weeks/ 6 days Estimated age based on LMP: 33 weeks/ 0 days Estimated weight (EFW): 2081 grams +/- 304 grams consistent with 39th percentile Anatomic Survey: Anatomic survey not performed IMPRESSION: Single viable fetus in cephalic presentation with a gestational age of 33 weeks and 6 days by measure ments and estimated age by LMP of 33 weeks and 0 days Estimated weight 2081 g, 39th percentile Report Dictated By: Amy Velázquez MD at 09/27/2018 3:23 PM Report E-Signed By: Amy Velázquez MD at 09/27/2018 3:46 PM WSN:[email or web address]
== END ==
LOC: RAD 08:16
PROVIDERS: ATTEND Student in an Organized Health Care Education/Training Program
DX: Z02.9 Encounter for administrative examinations, unspecified (principal)

== ENCOUNTER → 2018-10-18 | Outpatient (CLI) | payer MEDICAID | LOC: LAB 08:45 | PROVIDERS: ATTEND Student in an Organized Health Care Education/Training Program | DX: O10.919 Unspecified pre-existing hypertension complicating pregnancy, unspecified trimester (principal) | CPT/HCPCS: 36415; 82040; 82247; 82310; 82374; 82435; 82565; 82570; 82947; 84075; 84132; 84155; 84156; 84295; 84450; 84460; 84520; 85027 ==

== ENCOUNTER → 2018-10-22 | Outpatient (CLI) | payer MEDICAID ==
[~2018-10-22] MED LIST changes: +BET6I IM ONLY; +NIFE60TA77 PO
--- NOTE | 2018-10-22 13:35 | RADIOLOGY IMAGING REPORT ---
FACILITY: [facility] PATIENT NAME: Tracy Lombardi : 1980 MR: [id number] V: [id number] EXAM DATE: ORDERING PHYSICIAN: FLOYD NOWAK TECHNOLOGIST: Location: [facility] Patient: Tracy Lombardi : 1980 Visit/Account:[id number] Date of Sevice: 10/22/2018 Limited OB ultrasound Indication: Gestational hypertension. Preeclampsia. Comparison: September 27, 2018 FINDINGS: Intrauterine gestations: one presentation: Cephalic heart rate: 144 bpm Amniotic fluid index: 11.7 cm Largest amniotic fluid pocket 3.51 cm Placenta: Fundal without previa Gestational Parameters: BPD: 9.25 cm 37 weeks 5 days (88 percentile) HC: 33.23 cm 38 weeks zero days (58 percentile) AC: 32.70 cm 36 weeks 5 days (67 percentile) FL: 7.09 cm 36 weeks 3 days (44 percentile) Average ultrasound age (AUA): 37 weeks 2 days ELIESER: 11/10/2018 Estimated weight (EFW): 3034 g EFW for LMP: 64 percentile IMPRESSION: 1. Single live intrauterine gestation; estimated ultrasound age 37 weeks 2 days which gives a due dmitriy e of 11/10/2018. There has been appropriate growth since the prior ultrasound. This is also co ncordant with an earlier ultrasound 08/30/2018. Report Dictated By: Osmany Pñea at 10/22/2018 1:25 PM Report E-Signed By: Osmany Peña at 10/22/2018 1:30 PM WSN:[email or web address]
== END ==
LOC: LAB 08:22
PROVIDERS: ATTEND Student in an Organized Health Care Education/Training Program
DX: Z36.85 Encounter for antenatal screening for Streptococcus B (principal)
CPT/HCPCS: 87081

== ENCOUNTER 2018-10-24 22:32 | Inpatient (IN) | payer MEDICAID ==
[2018-10-24 23:30] VITALS: BP 161/88
[2018-10-25] MEDS ORDERED: FAMOTIDINE(*) 20MG/50ML PREMIX 50 ML IVPB PRN (00:01)
[2018-10-25] MEDS ORDERED: ceFAZolin(*) 2GM/D5W 50ML 50 ML IVPB PRN (00:01)
[2018-10-25] MEDS ORDERED: MISOPROSTOL 25 MCG CAP PO PRN (00:05)
[2018-10-25] MEDS ORDERED: LABETALOL HCL 20 MG/4 ML SYR IVP PRN (00:05)
[2018-10-25] MEDS ORDERED: METOCLOPRAMIDE 10 MG/2 ML SDV IVP PRN (00:05)
[2018-10-25] MEDS ORDERED: LIDOCAINE 1% LOCAL 300 MG/30ML INJ PRN (00:05)
[2018-10-25] MEDS ORDERED: TERBUTALINE SULF 1 MG/ML VIAL SUBQ PRN (00:05)
[2018-10-25] MEDS ORDERED: MISOPROSTOL 200 MCG TAB ONE (00:08)
[2018-10-25] MEDS ORDERED: OXYTOCIN 30 UNIT/D5LR 500 ML 500 ML ONE (00:09)
[2018-10-25 00:37] LABS: PLATELET COUNT, AUTOMATED 275 K/uL (150-450)
[2018-10-25] MEDS: MISOPROSTOL 100 MCG TAB PO PRN ×2 (04:16→10:16)
[2018-10-25] MEDS ORDERED: BUPIVACAINE 0.25% MPF INJ EPI PRN (08:25)
[2018-10-25] MEDS ORDERED: fentaNYL CITR 100 MCG/2 ML AMP IT PRN (08:25)
[2018-10-25] MEDS ORDERED: BUPIVACAINE 0.5% INJ 30ML VIAL EPI PRN (08:25)
[2018-10-25] MEDS ORDERED: LIDOCAINE/PF 2% 200MG/10ML AMP 200 MG/10 ML AMPUL EPI PRN (08:25)
[2018-10-25] MEDS ORDERED: FENTANYL/ROPIVACAINE 100 ML BAG EPI PRN ×2 (08:25→22:20)
[2018-10-25] MEDS ORDERED: LIDO/EPI 2% MPF 1:200,000 20ML EPI PRN ×2 (08:25→22:05)
--- NOTE | 2018-10-25 08:45 | History & Physical ---
History of Present Illness Age of Patient: 38 : 1 Para or TPAL: 0 EDC per LMP: Nov 15, 2018 EDC per U/S: Nov 15, 2018 Estimated Gestational Age: 37 Chief Complaint This is a 38 year old here for a scheduled induction of labor d/t Chronic Hypertension w/ Super Imposed Pre-Eclampsia. Betamethasone 10/22/18 and 10/23/18. She is currently on Nifedipine 60 mg XR daily. Was on Atenolol but changed secondary to not controlling BP. This am she reports no LOF, or VB, but good movement. She denies feeling contractions throughout the night, but has been having them irregularly after 2 doses of 50mg of PO Cytotec. She denies BLACK, vision changes, and RUQ pain. She is interested in the plan for today and has a lot of questions. She does have a support person that will be here later for her. History of Present Illness 37wk Chronic Hypertension w/ Super Imposed Pre-Eclampsia. History Patient's Blood Type: A Positive Rubella Status: Immune Group B Strep Screen: Negative Allergies: Uncoded Allergies: DERMABOND (Adverse Reaction, Unknown, 10/04/16) Social History: Denies smoking, use of ETOH and illicit frugs including marijuana Family History: FH: diabetes mellitus FATHER FH: hypertension FATHER Med Rec Home Meds Active Scripts Nifedipine (PROCARDIA XL) 60 Mg Tab.er.24, 60 MG PO QDAY, #15 TAB 3 Refills Prov:FLOYD NOWAK 10/22/18 Reported Medications Aspirin (ASPIRIN) 81 Mg Tab.chew, 81 MG PO QDAY, TAB.CHEW 07/01/18 Pnv #116/Iron Fumarate/Fa/Dha (EXPECTA COMBO PACK) 1 Each Combo..pkg 07/01/18 Discontinued Reported Medications Hydrochlorothiazide (HYDROCHLOROTHIAZIDE) 25 Mg Tablet, 1 TAB PO QDAY, TAB 04/23/18 Discontinued Scripts Nifedipine (NIFEDIPINE ER) 30 Mg Tab.er.24, 60 MG PO QDAY, #30 TAB 6 Refills Prov:FLOYD NOWAK 10/18/18 Review of Systems Constitutional: No Fever Neurological: No Syncope Eyes: No Vision Change Cardiovascular: No Chest Pain Respiratory: No Shortness of Breath Gastrointestinal: No Nausea, No Vomiting Musculoskeletal: No Pain Psychiatric: Anxiety; No Depression Exam General Exam Vital Signs Vital Signs Date Time Temp Pulse Resp B/P (MAP) Pulse Ox O2 Delivery O2 Flow Rate FiO2 10/24/18 23:30 21 161/88 (112) 96 Room Air General Apperance: Alert/Awake/No Acute Distress Neuro: No Gross deficits Eyes: Normal Extraocular Movement & Vison ENT: Normal Cardiovascular: Regular Rate and Rhythm Respiratory: No Respiratory Distress Abdomen: Gravid - Non-Tender, RUQ Non-Tender : Normal Musculoskeletal: No Weakness/Pain Integumentary: Skin Intact without Lesions or Rash Psychological: Alert & Oriented X3, Appropriate Mood & Affect Presentation: Double Footling Breech Uterine Contractions(Q min): 4 Uterine Contraction Strength: Mild UC Resting Tone: Soft Fetus Feeling Movement?: Yes Estimated Weight(grams): 3500 Heart Tones: 130 Heart Tone Variabilty: Moderate FHT Accelerations: 15X15 FHT Decelerations: None FHT Category: I Medical Decision Making Data Points Result Diagram: 10/25/18 0018 10/25/18 0018 Assessment and Plan 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 at 37w0d wks with an Estimated Date of Delivery: 11/15/18 dated by LMP consistent with a first trimester US Labor state: Not in labor, admitted last night for cervically ripening with PO Cytotec. Plan for CRB with low dose Pitocin this am as long as cervix is open. 80CC in both uterine and vaginal balloons. Pitocin will be started at 2mu and be increased every 20 minutes by 2mu to a max of 14mu while the CRB remains in place. Will place CRB on tension to leg, and will place extra manual tension every hour for 20 sec. Otherwise may consider another dose of Cytotec vaginally or buccal. Reviewed plan with patient and answered all questions. Patient will eat this am, shower and then we will proceed. well-being: Category I FHT: Continuous monitoring once the Pitocin begins, tele monitor if possible when pt wants to labor in the tub Maternal well-being: Mild range BPs, afebrile, membranes presumed intact PNL: GBS Neg, Type/Rh A+, rubella immune Pain Management: Would like to labor as long as possible without pain medication or epidural. Would like to try hydrotherapy. Discussed that an epidural can be helpful with rising BPs, so we may recommend this is they continue to rise Feed: Breast c/b: * Chronic Hypertension w/ Super Imposed Pre-Eclampsia. * Obesity * AMA Anticipate labor progression with cervical dilatation with the CRB and Pitocin, re-evaluate in 2-3 hours or prn AGUILAR MARTINEZ CNM Oct 25, 2018 08:45
--- NOTE | 2018-10-25 08:58 | Labor Progress Note ---
Labor Subjective Progress Notes Subjective Patient is a 32 sexual 1 para 0 at 37-0/7 weeks gestation presented last night for an induction of labor secondary to chronic hypertension with superimposed frequency. Patient has been taking nifedipine 60 mg by mouth daily. Patient has been undergoing surveillance twice a week with gayle mendozay rising blood pressures over the last few weeks. Patient underwent laboratory evaluation last week that showed a increase of her urine protein creatinine ratio so she is given a diagnosis of preeclampsia. Patient was counseled on risks of preeclampsia and advised to plan for a scheduled induction of labor at 37 weeks. Patient did undergo betamethasone injections on 325 and 326 for lung maturity. Patient also underwent maternity 21 testing in the 1st trimester secondary to advanced maternal age that was negative but consistent with a male . Patient underwent a growth ultrasound on 10/22/2018 that was 3034 g 6 lbs. 11 oz. in the 64th percentile cephalic presentation. Overnight patient received 50 mcg Cytotec followed by an additional 100 g dose for this morning. Patient reports feeling irregular contractions but nothing painful or consistent. Denies any visual changes, headache, blurry vision or right upper quadrant pain. Good movement, no vaginal bleeding, or loss of amniotic fluid. Feeling Movement?: No Vaginal Discharge/Fluid: No Bloody Show, No Clear Fluid, No Bloody Fluid, No Green Tinged Fluid, No Dark Green Fluid, No Mucous, No Small Amount, No Moderate Amount, No Large Amount, No Other Labor Pain: Mild Neurological: No Headache, No Other Eyes: No Visual Disturbances Labor Objective Vital Signs Vital Signs Date Time Temp Pulse Resp B/P (MAP) Pulse Ox O2 Delivery O2 Flow Rate FiO2 10/24/18 23:30 21 161/88 (112) 96 Room Air Cervical Dialation: 1 Cervical Effacement (%): 50 Cervical Consistency: Moderate Cervical Position: Mid Station: -2 Presentation: Vertex Uterine Contractions(Q min): 0 Uterine Contraction Strength: Mild Fetus Heart Tones: 120 Heart Tone Variabilty: Moderate FHT Accelerations: 15X15 FHT Category: I General Exam General Appearance: Alert/Awake/No Acute Distress ENT: Normal Cardiovascular: Normal Rhythm & Peripheral Pulses Abdomen: Soft, Non-Tender, Non-Distended, Gravid - Non-Tender : Normal Musculoskeletal: No Weakness/Pain Extremities: No Cyanosis,Clubbing or Edema Integumentary: Skin Intact without Lesions or Rash Psychological: Alert & Oriented X3, Appropriate Mood & Affect Other Result Diagram: 10/25/188 10/25/18 0018 Assessment and Plan [employer]ECTIVE [employer] EYE Assessment: Stable [employer]ECTIVE [employer]YE Plan: Routine Labor/Induct Care Problems: (1) Encounter for induction of labor Onset Date: ~ 10/25/2018 Status: Acute (2) Preeclampsia Assessment & Plan: Patient is status post betamethasone. Patient is also received 2 doses of Cytotec. Will plan for eating this morning and then plan for insertion of cervical ripening balloon and starting oxytocin. Will place 80 mL in both cervical balloons. Oxytocin will be increased 2 milliunits every minutes until we reach a total of 14 milliunits. We'll give some fentanyl prior to cervical remnant removal and placement. Epidural and wanted. (3) Chronic hypertension complicating or reason for care during FLOYD NOWAK DO Oct 25, 2018 08:58
[2018-10-25] MEDS ORDERED: NIFEdipine XL 30 MG TABCR PO SCH (09:00)
[2018-10-25] MEDS: fentaNYL CITR 100 MCG/2 ML AMP IVP PRN ×2 (10:17→14:34)
--- NOTE | 2018-10-25 13:07 | Labor Progress Note ---
Labor Subjective Progress Notes Subjective Patient comfortable status post shower and breakfast. She is 4 hours post Cytotec with the plan to place cervical ripening balloon. Feeling Movement?: Yes Vaginal Discharge/Fluid: No Bloody Show, No Clear Fluid, No Bloody Fluid, No Green Tinged Fluid, No Dark Green Fluid, No Mucous, No Small Amount, No Moderate Amount, No Large Amount, No Other Labor Pain: Mild Neurological: No Headache, No Other Eyes: No Visual Disturbances Labor Objective Vital Signs Vital Signs Date Time Temp Pulse Resp B/P (MAP) Pulse Ox O2 Delivery O2 Flow Rate FiO2 10/24/18 23:30 21 161/88 (112) 96 Room Air Cervical Dialation: 1 Cervical Effacement (%): 50 Cervical Consistency: Moderate Cervical Position: Mid Fetus Heart Tone Variabilty: Moderate FHT Accelerations: 15X15 FHT Decelerations: None FHT Category: I Other Result Diagram: 10/25/18 0018 10/25/18 0018 Assessment and Plan [employer]OR [employer]CE Assessment: Stable Problems: (1) Encounter for induction of labor Onset Date: ~ 10/25/2018 Status: Acute Assessment & Plan: Cervical ripening balloon attempted difficulty to place secondary to cervix and position. 50 g of Cytotec was placed vaginally will repeat in 4 hours of necessary. FLOYD NOWAK DO Oct 25, 2018 13:07
[2018-10-25] MEDS ORDERED: OXYTOCIN 30 UNIT/D5LR 500 ML 500 ML IV PRN (14:28)
[2018-10-25] MEDS: LR(*) 1000 ML BAG 1,000 ML IV PRN (14:35)
[2018-10-25] MEDS: LABETALOL HCL 100 MG/20ML VIAL IVP PRN ×4 (15:26→21:45)
--- NOTE | 2018-10-25 16:10 | Labor Progress Note ---
Labor Subjective Progress Notes Subjective Pt is s/p CRB placement and Pitocin was started at 14:41. After placement BPs increased and Dr. Quiles managing with labetalol algorithm. Pt is feeling contraction pain after placement and also more pressure and cramping. Pt denies BLACK, vision changes, and RUQ pain. Feeling Movement?: Yes Vaginal Discharge/Fluid: Bloody Show Labor Pain: Mild (does not really feel contractions, but after the CRB feeling a lot more pressurs and cramping) Neurological: No Headache Eyes: No Visual Disturbances Labor Objective Vital Signs Vital Signs Date Time Temp Pulse Resp B/P (MAP) Pulse Ox O2 Delivery O2 Flow Rate FiO2 10/24/18 23:30 21 161/88 (112) 96 Room Air Vaginal Discharge/Fluid?: Bloody Show Cervical Dialation: 1 (CRB placed without difficulty, 80cc uterine and 80cc vaginal) Cervical Effacement (%): 50 Cervical Consistency: Moderate Cervical Position: Mid Station: -2 Presentation: Vertex Uterine Contractions(Q min): 4 Uterine Contraction Strength: Mild UC Resting Tone: Soft Fetus Estimated Weight(grams): 3700 Heart Tones: 125 Heart Tone Variabilty: Moderate FHT Decelerations: None FHT Category: I (125) General Exam General Appearance: Alert/Awake/No Acute Distress ENT: Normal Neck: No Masses Cardiovascular: Normal Rhythm & Peripheral Pulses Respiratory: No Respiratory Distress Abdomen: Gravid - Non-Tender, RUQ Non-Tender Psychological: Alert & Oriented X3, Appropriate Mood & Affect Other Result Diagram: 10/25/188 10/25/18 0018 Assessment and Plan HEEL SEATER Plan: Routine Labor/Induct Care Problems: (1) Encounter for induction of labor Onset Date: ~ 10/25/2018 Status: Acute Assessment & Plan: GM is a 38 y.o. at 37w0d wks with an Estimated Date of Delivery: 11/15/18 dated by LMP consistent with a first trimester US Labor state: Not in labor, admitted last night 10/24/18 for cervically ripening with PO Cytotec, and now has the CRB after one dose of 50mcg of vaginal cytotec; instilled with 80cc/80cc vaginal and uterine. Pitocin was started at 14:21 and it now at 6mu/hr and will be increased until 14mu. Hourly pressure applied to already tension CRB. well-being: Category I FHT: Continuous monitoring tele monitor Maternal well-being: Severe range BPs, Labetalol algorithm started, afebrile, membranes presumed intact PNL: GBS Neg, Type/Rh A+, rubella immune Pain Management: Coping well but we discussed that an epidural is helpful with rising BPs, so we recommend an epidural consult now Feed: Breast c/b: * Chronic Hypertension w/ Super Imposed Pre-Eclampsia. * Obesity * AMA Anticipate CRB to come out in about 2-3 hours. Reevaluate in 2-3 hours. Check out to Dr. Quiles at 5pm. AGUILAR MARTINEZ CNM Oct 25, 2018 16:10
[2018-10-25] MEDS ORDERED: MAGNESIUM SUL* 4 GM/100 ML BAG 100 ML IVPB ONE (17:00)
--- NOTE | 2018-10-25 17:06 | Labor Progress Note ---
Labor Subjective Progress Notes Subjective Feeling better with Balloon removed. No headache or visual changes. Feeling Movement?: Yes Vaginal Discharge/Fluid: Bloody Show Labor Pain: Mild Neurological: No Headache, No Other Eyes: No Visual Disturbances Labor Objective Vital Signs Vital Signs Date Time Temp Pulse Resp B/P (MAP) Pulse Ox O2 Delivery O2 Flow Rate FiO2 10/24/18 23:30 21 161/88 (112) 96 Room Air Vaginal Discharge/Fluid?: Bloody Show Cervical Dialation: 3 Cervical Effacement (%): 75 Cervical Consistency: Soft Cervical Position: Mid Station: -2 Presentation: Vertex Uterine Contractions(Q min): 4 Uterine Contraction Strength: Mild Fetus Heart Tones: 125 Heart Tone Variabilty: Moderate FHT Accelerations: Present FHT Decelerations: None FHT Category: I Other Result Diagram: 10/25/18 0018 10/25/18 0018 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 Pt has had total of 80 mg Labetalol IV for severe range blood pressures. Will start patient on magnesium sulfate with 4 gm loading bolus then 2 gm/hr. Continue Oxytocin and increase every 15-20 minutes. Problem Qualifiers (1) Preeclampsia: Trimester: third trimester Qualified Codes: O14.93 - Unspecified pre- eclampsia, third trimester FLOYD NOWAK Oct 25, 2018 17:06
[2018-10-25] MEDS ORDERED: MAGNESIUM SULF 20 GM/500 ML IV 500 ML IV SCH (17:15)
[2018-10-25] MEDS ORDERED: CALCIUM GLUC 10% 100 MG/ML VL IVP ONE (20:30)
--- NOTE | 2018-10-25 21:58 | Labor Progress Note ---
Labor Subjective Progress Notes Subjective Doing good. Able to breath through contractions. Denies any headache or visual changes. No RUQ pain. No vaginal bleeding. Feeling Movement?: Yes Vaginal Discharge/Fluid: Bloody Show; No Clear Fluid, No Bloody Fluid, No Green Tinged Fluid, No Dark Green Fluid, No Mucous, No Small Amount, No Moderate Amount, No Large Amount, No Other Labor Pain: Mild Neurological: No Headache, No Other Eyes: No Visual Disturbances Labor Objective Vital Signs Vital Signs Date Time Temp Pulse Resp B/P (MAP) Pulse Ox O2 Delivery O2 Flow Rate FiO2 10/24/18 23:30 21 161/88 (112) 96 Room Air Vaginal Discharge/Fluid?: Clear Fluid (with amniotomy) Cervical Dialation: 4 Cervical Effacement (%): 75 Cervical Consistency: Soft Cervical Position: Anterior Station: -1 Presentation: Vertex Uterine Contraction Strength: Moderate UC Resting Tone: Soft Fetus Heart Tones: 130 Heart Tone Variabilty: Moderate FHT Accelerations: Present FHT Decelerations: None FHT Category: I General Exam Extremities: Reflexes (2/4) Psychological: Alert & Oriented X3, Appropriate Mood & Affect Other Result Diagram: 10/25/18 0018 10/25/18 0018 Assessment and Plan MANAGER TRANSPORTATION Assessment: Stable Problems: (1) Encounter for induction of labor Onset Date: ~ 10/25/2018 Status: Acute (2) Preeclampsia Status: Acute Assessment & Plan: Amniotomy. Pt has received additional doses of Labetalol for severe range blood pressures. Will repeat labs at 2300. Increase oxytocin to 30 mu/min if necessary. Recheck 2 hours. Problem Qualifiers (1) Preeclampsia: Trimester: third trimester Qualified Codes: O14.93 - Unspecified pre- eclampsia, third trimester FLOYD NOWAK DO Oct 25, 2018 21:58
[2018-10-25] MEDS ORDERED: FENTANYL/ROPIVACAINE 100ML BAG 100 ML ONE (22:18)
[2018-10-25] MEDS ORDERED: fentaNYL CITR 100 MCG/2 ML AMP ONE (22:20)
[2018-10-25] MEDS ORDERED: ePHEDrine 25 MG/5 ML DISP.SYR IVP ONE (22:20)
--- NOTE | 2018-10-25 23:38 | Anesthesia OB Pre-Anes Eval ---
History of Present Illness Anesthesia Start Date: Oct 25, 2018 Anesthesia Start Time: 22:18 OB Anesthesia Diagnosis: gestational hypertension, induction - medical Current Complication: gestational hypertention, obesity EDC: Nov 15, 2018 : 1 Para: 0 Pain Ratin Result Diagram: 10/25/188 10/25/1817 Weight (Pounds): 225 Past Medical History Medical History: hypertension, other (Mk-Slater syndrome, anxiety, depression) Surgical History: other (Colonoscopy, dental, breast reduction) Previous Anesthesia: general Attended Childbirth Classes?: No Hx Anesthesia Reactions: No Hx Family Anesthesia Reaction: No Current Medications: magnesium sulfate, pitocin Home Meds Active Scripts Nifedipine (PROCARDIA XL) 60 Mg Tab.er.24, 60 MG PO QDAY, #15 TAB 3 Refills Prov:FLOYD NOWAK 10/22/18 Reported Medications Aspirin (ASPIRIN) 81 Mg Tab.chew, 81 MG PO QDAY, TAB.CHEW 07/01/18 Pnv #116/Iron Fumarate/Fa/Dha (EXPECTA COMBO PACK) 1 Each Combo..pkg 07/01/18 Discontinued Reported Medications Hydrochlorothiazide (HYDROCHLOROTHIAZIDE) 25 Mg Tablet, 1 TAB PO QDAY, TAB 04/23/18 Discontinued Scripts Nifedipine (NIFEDIPINE ER) 30 Mg Tab.er.24, 60 MG PO QDAY, #30 TAB 6 Refills Prov:FLOYD NOWAK 10/18/18 Allergies: Uncoded Allergies: DERMABOND (Adverse Reaction, Unknown, 10/04/16) Anesthesia OB ROS Neurological: migraines/headaches, other (Mk-slater syndrome) ENT: Denies Tooth caps, Denies Loose teeth, Denies Chipped teeth, Denies Dentures, Denies Bridges, Denies Retainers, Denies Veneers, Denies Implants, Denies Tongue ring, Denies Other Pulmonary: No asthma, No smoker (pks/day/yrs); other (Smoked pot prior to preg.) Airway Class: ll Cardiovascular ROS: No edema, No arrhythmia, No other GI ROS: clear liquids Last Solids Date: Oct 24, 2018 Last Solids Time: 18:00 ROS: No Herpes, No STD(s), No Liver Disease, No Renal Disease, No Other Endocrine ROS: No diabetes, No gestational diabetes, No thyroid disorder, No other Musculoskeletal ROS: No low back pain, No low back injury, No scoliosis, No other ASA Classification: 3 Assessment and Plan Anesthesia Plan: CSE Anesthesia Stop Day: Oct 26, 2018 Anesthesia Stop Time: 04:48 Epidural Catheter Removal: Removed Catheter Intact, Yes, Removed by: (Sidney Pan CRNA) Removal Date: Oct 26, 2018 Removal Time: 04:43 SIDNEY PAN CRNA Oct 25, 2018 23:38
--- NOTE | 2018-10-25 23:40 | Procedure Note ---
Anesthetic Placement Note Anesthesia Plan: CSE Permit for Anesthesia Signed: Yes Anesthesia Technique: Patient Sitting Anesthesia Prep: Betadine Interspace: L 3-4 Local Anesthetic: 1% Lidocaine, 25 Gauge Needle Amount Local - cc's: 2 Anesthesia Needle: 17g Touhy/Schliff Anesthesia Attempts: 1 Loss of Resistance: Normal Saline Depth of MICHAEL (cm): 6 Epidural Needle Placement: No CSF, No Blood, No Parasthesia Intrathecal Needle: 27 Gauge Pencan Cerebral Spinal Fluid: Yes, Clear Catheter Insertion (cm): 11 Catheter Type: Kidd - Spring Wound Epidural Dressing: Tegaderm, Tape Anesthesia Tray: Lot Number ([id number]), Expiration Date (03/30/2020) Anesthesia Medications: Intrathecal Dose: mcg Fentanyl (50), Time (2302) Epidural Test Dose: 1.5 Lido/Epi (1:200,000), Dose - mL (3), Time (2305), Negative Epidural Infusion: 0.2% Ropivicaine, With Fentanyl 2mcg/ml, Start Time: (2307) Epidural Pump Setting: Bolus Dose - mL (4), Lockout - Minutes (20), Maintenance Rate - mL/hr (7), Maximum per Hour - mL (8) Complications: None Comment: Pt became hypotensive and experienced SOB about 45 min following placement of CSE when she was turned by staff. Was some concern about Mag and Pit in IV line. Dose was reduced to 2cc's and slowly titrated up as pressured tolerated to 5cc/hr with a 3 cc bolus. Pt tolerated well. 20 GA IV was placed in L hand for secondary line. Everything resolved shortly there after and patient was able to rest without complication. Pt was dosed with 100mg through the epidural prior to OR for . Pt tolerated well until pt was moved to or bed when she complained of SOB that resolved shortly after. There was concern that pt may have experienced changed after RN ran ANCEF and Pepcid through IV line with MAG. Should also be noted that patient is currently untreated for hx of anxiety. ROBERTO PAN CRNA Oct 25, 2018 23:40
[2018-10-25] MEDS ORDERED: NS(*) 0.9% 1000 ML BAG 1,000 ML ONE (23:53)
[2018-10-26] VITALS (25 sets, daily range): BP systolic 114–189; BP diastolic 70–111
--- NOTE | 2018-10-26 00:45 | Labor Progress Note ---
Labor Subjective Progress Notes Subjective I was called to the room to evaluate low blood pressure and decreased heart rate. Pt complained of increasing sensation of not being able to swallow. Pt was 20 minutes s/p epidural/spinal combination. No bleeding. No shortness of breath. Feeling Movement?: Yes Vaginal Discharge/Fluid: Clear Fluid Labor Pain: Comfortable Neurological: No Headache, No Other Eyes: No Visual Disturbances Labor Objective Vital Signs Vital Signs Date Time Temp Pulse Resp B/P (MAP) Pulse Ox O2 Delivery O2 Flow Rate FiO2 10/24/18 23:30 21 161/88 (112) 96 Room Air Vaginal Discharge/Fluid?: Bloody Show Cervical Dialation: 4 Cervical Effacement (%): 80 Cervical Consistency: Soft Cervical Position: Mid Station: -2 Presentation: Vertex Uterine Contractions(Q min): 3 Uterine Contraction Strength: Moderate UC Resting Tone: Soft Fetus Heart Tones: 155 (after deceleration with recovery.) Heart Tone Variabilty: Moderate FHT Decelerations: None FHT Category: II Other Result Diagram: 10/25/18 0018 10/25/18 0018 Assessment and Plan 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 Blood pressure was managed with IM/IV Ephedrine and IV fluid bolus. Oxytocin was held. Maternal oxygen mask was initiated. Multiple maternal position changes performed. FSE was placed by rn during the deceleration with recovery after FSE placement. Once blood pressures were improved patient symptoms stopped and babies heart rate returned to baseline. IUPC was placed to help monitor contractions and determine adequacy of oxytocin and timing of decelerations. Pt counseled that with her being remote for delivery that if baby were to have another deceleration I would want to move forward with delivery. Pt voices understanding and is in agreement. Will leave oxytocin off for 30 minutes to allow for recovery. Oxytocin was at 22 mU/min. Will return after thirty minutes to 6 mU/min and increase every 20 minutes by 2 mU/min. If late decelerations or repetitive decelerations return I will move towards delivery. Pt voices understanding. Problem Qualifiers (1) Preeclampsia: Trimester: third trimester Qualified Codes: O14.93 - Unspecified pre- eclampsia, third trimester ELIUFLOYD DO Oct 26, 2018 00:45
[2018-10-26] MEDS: LR(*) 1000 ML BAG 1,000 ML IV PRN (01:37)
[2018-10-26] MEDS ORDERED: OXYTOCIN 10 UNIT/ML SDV ONE (03:11)
[2018-10-26] MEDS ORDERED: LIDOCAINE/PF 2% 200MG/10ML AMP 200 MG/10 ML AMPUL ONE (03:12)
--- NOTE | 2018-10-26 03:18 | Labor Progress Note ---
Labor Subjective Progress Notes Subjective Pt comfortable. Baby continues to have repetitive lates that are fixed with position changes and reoccur 1-2 hours later. Feeling Movement?: Yes Vaginal Discharge/Fluid: Green Tinged Fluid Labor Pain: Mild Neurological: No Headache, No Other Eyes: No Visual Disturbances Labor Objective Vital Signs Vital Signs Date Time Temp Pulse Resp B/P (MAP) Pulse Ox O2 Delivery O2 Flow Rate FiO2 10/24/18 23:30 21 161/88 (112) 96 Room Air Vaginal Discharge/Fluid?: Green Tinged Fluid Cervical Dialation: 4 Cervical Effacement (%): 80 Cervical Consistency: Soft Cervical Position: Posterior Presentation: Vertex Fetus Heart Tones: 150 Heart Tone Variabilty: Moderate FHT Accelerations: Present FHT Decelerations: Late FHT Category: II Other Result Diagram: 10/25/18 0018 10/25/18 0018 Assessment and Plan Problems: (1) Encounter for induction of labor Onset Date: ~ 10/25/2018 Status: Acute (2) Preeclampsia Status: Acute Assessment & Plan: Because of the late decelerations that reoccur but are fixed with position changes and us being remote from delivery I discussed again the possibility of going to the OR for delivery. The patient agrees. She was counseled on R/B/A and agrees to proceed. Oxytocin was discontinued. Pt to get two gm of cefazolin IV for pre-op op abx. Problem Qualifiers (1) Preeclampsia: Trimester: third trimester Qualified Codes: O14.93 - Unspecified pre- eclampsia, third trimester HANNAH NOWAKMagali HANNA Oct 26, 2018 03:18
[2018-10-26] MEDS ORDERED: ONDANSETRON 4 MG/2 ML VIAL ONE (03:57)
[2018-10-26] MEDS ORDERED: PROPOFOL EMUL(*) 10MG/ML 20 ML 20 ML ONE (04:08)
[2018-10-26] MEDS ORDERED: NS 0.9% IRRIGATION 1000ML PLCT IR ONE (04:31)
[2018-10-26] MEDS ORDERED: DLR(*) 1000 ML BAG 1,000 ML IV PRN (04:53)
[2018-10-26] MEDS ORDERED: OXYTOCIN 30 UNIT/D5LR 500 ML 500 ML IV PRN (04:53)
[2018-10-26] MEDS ORDERED: ZOLPIDEM TARTRATE 5 MG TAB PO PRN (04:55)
[2018-10-26] MEDS ORDERED: ONDANSETRON 4 MG/2 ML VIAL IV PRN (04:55)
[2018-10-26] MEDS ORDERED: PROMETHAZINE 25 MG/ML 1 ML AMP IVP PRN (04:55)
[2018-10-26] MEDS ORDERED: INFLUENZA VIRUS VAC 0.5ML SYR IM ONE (04:55)
[2018-10-26] MEDS ORDERED: SIMETHICONE 80 MG CHEW CHEW PRN (04:55)
[2018-10-26] MEDS ORDERED: MEASLES,MUMP,RUBELLA VAC 0.5ML SC ONE (04:55)
[2018-10-26] MEDS ORDERED: LANOLIN OINT 7 GM TUBE TP PRN (04:55)
[2018-10-26] MEDS ORDERED: DIPHTH/TETANUS/ACEL. PERTUSSIS IM ONE (04:55)
--- NOTE | 2018-10-26 05:15 | Post Operative Note ---
Operative Note - [facility] Operative Day Date: Oct 26, 2018 Time: 04:58 Physicians Surgeon: Floyd Quiles DO Anesthesia: Spinal/Epidural Diagnosis Pre-Op Diagnosis: 38 y/o @ 37-1/7 wga Chronic hypertension with super imposed pre-eclampsia w/severe features Non reassuring HR, remote from delivery MSAF Post-Op Diagnosis: same Procedure Findings: Live born male infant at 0352 with apgars of 9/10 weight 2526 gm 5#9oz, 3vc/ip. Normal tubes and ovaries bilaterally Procedure(s): 1LTCS Specimen Removed:(Maybe N/A): 0 Complications: 0 known Fluids Fluids: 1700 lr/magnesium u/o 200 Estimated Blood Loss: 800 Dictated Date OP Note Dictated: Oct 26, 2018 Time OP Note Dictated: 05:14 FLOYD QUILES DO Oct 26, 2018 05:14
--- NOTE | 2018-10-26 05:15 | NUR ---
0506:skin to skin, breast feeding 0513: 400m clear pale urine out
[2018-10-26] MEDS: LABETALOL HCL 100 MG/20ML VIAL IVP PRN ×4 (05:23→06:08)
--- NOTE | 2018-10-26 06:32 | NUR ---
0631: malinda billings gave report to [place] ob nurse. 450 clear pale yellow urine out. transferring pt
[2018-10-26] MEDS: KETOROLAC 30 MG/ML VIAL IVP SCH ×3 (06:50→19:13)
[2018-10-26] MEDS: LABETALOL HCL 100 MG/20ML VIAL ONE (06:51)
--- NOTE | 2018-10-26 08:15 | OPERATIVE REPORT 1 ---
EVENT DATE: October 26, 2018 SURGEON: Jonny Quiles DO ANESTHESIA: Epidural/spinal, Sidney Cavanaugh CRNA PREOPERATIVE DIAGNOSES 1. 38-year old 1, para 0 at 37 and 1/7 weeks gestation. 2. Chronic hypertension with superimposed preeclampsia. 3. Nonreassuring heart tones remote from from delivery. 4. Meconium-stained amniotic fluid. POSTOPERATIVE DIAGNOSES 1. 38-year old 1, para 0 at 37 and 1/7 weeks gestation. 2. Chronic hypertension with superimposed preeclampsia. 3. Nonreassuring heart tones remote from from delivery. 4. Meconium-stained amniotic fluid. 5. Delivered. PROCEDURE Primary low-transverse section. FINDINGS Liveborn born male infant at 0352 with Apgars of 9 and 10, weighing 2526 grams, 5 pounds 9 ounces, three-vessel cord, intact placenta. Normal tubes and ovaries bilaterally. ESTIMATED BLOOD LOSS 800 cc. IV FLUIDS 1700 cc, combination of lactated ringers and magnesium sulfate. URINE OUTPUT 200 cc. COMPLICATIONS None known. CONDITION Stable x2. Mother and to the recovery room COUNTS Correct x2 for all needles, laps, sponges and instruments. INDICATIONS AND CONSENT Patient is a 38-year old 1, para 0 who presented to Labor and Delivery at 37 weeks' gestation for induction of labor secondary to chronic hypertension and superimposed preeclampsia. The patient initially received misoprostol, 50 mcg p.o. followed by 100 mcg p.o. followed by 50 mcg per vagina followed by a cervical oxytocin subsequently being used. Balloon was removed approximately three hours after delivery. Patient did have some severe range blood pressures and was treated with multiple doses of labetalol. Because of that treatment, she was started on magnesium sulfate secondary to severe features because of treating the blood pressures. Patient did receive a 4 gram bolus followed by 2 gram/hour thereafter. Approximately four hours after the cervical atony balloon was removed, the patient had amniotic membranes rupture with clear amniotic noted at that time. The patient shortly thereafter asked for an epidural. Patient received an epidural and was comfortable after her medication. Patient did have a decrease in blood pressure, which was shown with the baby with an increase in late decelerations. These were changed and alleviated with ephedrine IM and IV as well as IV fluid bolus and maternal position changes. There was a deceleration that was approximately eight minutes long with return to baseline and remained category 2 because of no accelerations and minimal variability. Patient at this time was counseled secondary to the way the baby was tolerating labor; that if down the road she continued to have these late decelerations then I was going to suggest a caesarean delivery because of this. Oxytocin was continued. Patient was good for approximately two hours and then we began having repetitive late decelerations that were fixed with maternal position changes but there was no change in cervical dilation. The patient remained 4 cm because of this and being remote from delivery the patient was counseled for caesarean delivery and agreed to proceed accordingly. She was given all risks, benefits and alternatives. She did receive 2 grams of Cefazolin prior to her caesarean delivery. DESCRIPTION OF PROCEDURE Patient was taken to the operating room, where she had her epidural re-bolused. She was placed in the lithotomy position. She was prepped and draped in the usual sterile manner. Skin testing performed and noted to be adequate to above the umbilicus. The patient then had a Pfannenstiel incision, with the scalpel on her uterus. The patient's incision was extended all the way to the fascia. Once the fascia was visualized, it was lysed bilaterally. Fascial incisions were then extended laterally with curved [place] scissors. Rectus muscles were dissected off the fascia both superiorly and inferiorly. The rectus muscles were at midline. The peritoneum was entered bluntly with hemostats. The peritoneum incision was extended both inferiorly and superiorly with Metzenbaum scissors. Gentle stretching was performed. The bladder blade was placed. A bladder flap was created with Metzenbaum scissors and Belgian pickups. Bladder blade was replaced. A low transverse incision was created on the uterus and secured sharply down to the layer of the amnion. Once the amnion was noted, the surgeon's finger was placed inside the hysterotomy. Incision was extended laterally with the surgeon's fingers. With the surgeon's hand placed inside the hysterotomy, it was noted there was meconium-stained amniotic fluid. With than in mind, the infant's head was brought to the level of the hysterotomy. Fundal pressure was performed by the assistants and the 's head delivered in controlled manner followed by the posterior shoulders with upward motion and anterior shoulder with downward motion. The remainder of the 's body delivered spontaneously. At this point, a vigorous male infant was delivered. Mouth and nose were bulb suctioned. After approximately 1-1/2 minutes, the cord was clamped x2 and cut. The was handed to awaiting nursing to be taken to warmer to be attended by the fondant machine operator. Cord blood gas was obtained. The placenta delivered with manual extraction. The uterus was then exteriorized and wrapped with a wet laparotomy sponge. The uterus was then cleaned of all clot and debris with a dry laparotomy sponge and the uterus was then closed with 0 Monocryl in a running. An imbrication stitch was then used for hemostasis. The patient's hysterotomy was inspected and found to be hemostatic. At this point, the posterior gutter was cleaned of all clot and debris, the uterus placed back inside the abdomen. Hysterotomy was inspected and once again found to be hemostatic. The peritoneum was closed with a 2-0 Monocryl in a running manner. Fascia was closed with a 0 loop PDS in a running manner. Subcutaneous tissue was closed with a 3-0 Monocryl in a running manner. The skin was closed with a 4-0 Monocryl in a subcuticular manner. Because of patient's Dermabond allergy, she did have Steri-Strips placed over the incision with a pressure dressing. The patient was then transferred to the recovery room in stable condition. KADE
[2018-10-26] MEDS: DOCUSATE CALCIUM 240 MG CAP PO SCH ×2 (09:47→20:40)
[2018-10-26] MEDS: FAMOTIDINE 20 MG TAB PO SCH ×2 (09:47→20:40)
[2018-10-26] MEDS: NIFEdipine XL 30 MG TABCR PO SCH (09:47)
[2018-10-26] MEDS ORDERED: MAGNESIUM SULF 20 GM/500 ML IV 500 ML IV SCH (14:47)
[2018-10-26 16:13] LABS: PLATELET COUNT, AUTOMATED 228 K/uL (150-450)
--- NOTE | 2018-10-26 17:04 | OB/GYN Progress Note ---
OB Subjective Progress Notes Subjective Doing good POD #0. Tolerating regular diet. Pain controlled. Patient does report headache and some blurry vision that is alveated with Percocet. No SOB or CP. GI: NEG Nausea, NEG Vomiting, NEG Flatus, NEG Bowel Movement : Voiding Well Pain: Mild Neurological: No Headache, No Other Eyes: No Visual Disturbances OB Objective Physical Exam Vital Signs Date Time Temp Pulse Resp B/P (MAP) Pulse Ox O2 Delivery O2 Flow Rate FiO2 10/26/18 16:15 97.2 90 138/71 (93) 90 Room Air 10/26/18 11:50 18 10/26/18 06:21 2.0 Intake and Output 10/26/18 07:00 Intake Total 460 ml Output Total 675 ml Balance -215 ml Intake Oral 360 ml IV Total 100 ml Output Urine Total 675 ml General Appearance: Alert/Awake/No Acute Distress Neurological: No Gross deficits Eyes: Normal Extraocular Movement & Vison ENT: Normal Neck: No Masses Cardiovascular: Normal Rhythm & Peripheral Pulses Respiratory: No Respiratory Distress Abdomen: Soft, Non-Tender, Non-Distended, Fundus Firm Incision: Clean, Dressing : Normal Musculoskeletal: No Weakness/Pain Extremities: Reflexes (2/4) Integumentary: Skin Intact without Lesions or Rash Psychological: Alert & Oriented X3, Appropriate Mood & Affect Result Diagram: 10/26/18 1603 10/26/18 1603 Assessment and Plan 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 Pt will stop 24 hr recover at 3:30 am of 10/27/18. Pt today has had normal blood pressures once she was started back on Procardia 60 mg XL in the AM. Did require > 200 mg of labetalol given in climbing doses from 20-80 to control BP in the recovery room. Pt has had 2 liters of fluid out in less then 12 hours. Expect her to continue to diurese. Pt to have sims catheter d/c'd in the AM. Problem Qualifiers (1) Preeclampsia: Trimester: third trimester Qualified Codes: O14.93 - Unspecified pre-e clampsia, third trimester FLOYD NOWAK DO Oct 26, 2018 17:03
[2018-10-27] VITALS (10 sets, daily range): BP systolic 138–177; BP diastolic 70–91
[2018-10-27] MEDS: IBUPROFEN 800 MG TAB PO SCH ×4 (00:47→17:03)
[2018-10-27] MEDS: DOCUSATE CALCIUM 240 MG CAP PO SCH ×2 (09:03→21:34)
[2018-10-27] MEDS: FAMOTIDINE 20 MG TAB PO SCH ×2 (09:03→21:34)
[2018-10-27] MEDS: NIFEdipine XL 30 MG TABCR PO SCH (09:04)
--- NOTE | 2018-10-27 09:06 | OB/GYN Progress Note ---
OB Subjective Progress Notes Subjective Pt is feeling ok. She is having more pain than she would like, but is able to move around with the oral medications. Her sims is still in and she has excellent UOP. Normal lochia. Tolerating oral without N/V. No preeclampsia symptoms. Magnesium was stopped at 0330 this morning. OB Objective Physical Exam Vital Signs Date Time Temp Pulse Resp B/P (MAP) Pulse Ox O2 Delivery O2 Flow Rate FiO2 10/27/18 03:30 97.5 86 16 155/85 (108) 96 Room Air 10/26/18 06:21 2.0 Intake and Output 10/27/18 07:00 Intake Total 4134 ml Output Total 6750 ml Balance -2616 ml Intake Oral 2320 ml IV Total 1814 ml Output Urine Total 6750 ml General Appearance: Alert/Awake/No Acute Distress Neurological: No Gross deficits Eyes: Normal Extraocular Movement & Vison Cardiovascular: Normal Rhythm & Peripheral Pulses Respiratory: No Respiratory Distress Abdomen: Fundus Firm, Other (Soft, mildly tender on uterus but appropriately so, nondistended) Incision: Clean, Dressing Extremities: Reflexes (1/4), Edema (1+ bilateral LE); No Clonus Integumentary: Skin Intact without Lesions or Rash Psychological: Alert & Oriented X3, Appropriate Mood & Affect Result Diagram: 10/27/18 0830 10/27/18 0830 Assessment and Plan Problems: (1) Status post delivery Assessment & Plan: POD#1 s/p PLTCD. Routine postop orders. Dressing to come off around 1530hrs today. Sims to come out now. (2) Preeclampsia Status: Acute Assessment & Plan: Preeclampsia with severe blood pressure on admission and immediately . She is s/p 24hr magnesium which stopped at 0330 on 10/27/18. BP are stable with Procardia 60XL daily. They are still moderately high but not enough to increase any medication for now. She has excellent UOP. Will d/c sims this morning. Labs are normal today. Continue to monitor closely. Problem Qualifiers (1) Preeclampsia: Trimester: third trimester Qualified Codes: O14.93 - Unspecified pre- eclampsia, third trimester KATRIN FIORE MD Oct 27, 2018 09:06
[2018-10-27] MEDS ORDERED: NIFEdipine 10 MG CAP PO ONE (20:15)
[2018-10-28] MEDS: ACETAMINOPHEN 325 MG TAB PO PRN ×2 (00:13→04:52)
[2018-10-28] MEDS: IBUPROFEN 800 MG TAB PO SCH ×3 (01:19→17:00)
[2018-10-28 03:29] VITALS: BP 146/98
[2018-10-28 07:11] VITALS: BP 144/89
[2018-10-28] MEDS: NIFEdipine XL 30 MG TABCR PO SCH (09:21)
[2018-10-28] MEDS: DOCUSATE CALCIUM 240 MG CAP PO SCH ×2 (09:21→21:38)
[2018-10-28] MEDS: FAMOTIDINE 20 MG TAB PO SCH ×2 (09:21→21:38)
[2018-10-28 13:54] VITALS: BP 169/93
[2018-10-28 14:19] VITALS: BP 169/95
--- NOTE | 2018-10-28 14:22 | OB/GYN Progress Note ---
OB Subjective Progress Notes Subjective Pt is very emotional this am as she has been struggling with . This am they did give the baby some donor milk and he was sleeping well after. She feels very exhausted and tearful. She denies BLACK, vision changes, or RUQ pain. She is tolerating her pain with ibuprofen and Percocet. +flatus but no BM yet. She is voiding well. Plan for her to stay until tomorrow when will see her. GI: POS Flatus; NEG Nausea, NEG Vomiting, NEG Bowel Movement : Voiding Well, Vaginal Bleeding, Scant Pain: Moderate, Tolerating PO Pain Meds Neurological: No Headache Eyes: No Visual Disturbances OB Objective Physical Exam Vital Signs Date Time Temp Pulse Resp B/P (MAP) Pulse Ox O2 Delivery O2 Flow Rate FiO2 10/28/18 07:41 97.6 98 10/28/18 07:11 18 144/89 (107) Room Air 10/28/18 03:29 96 10/26/18 06:21 2.0 Intake and Output 10/28/18 07:00 Intake Total 1180 ml Output Total 4900 ml Balance -3720 ml Intake Oral 1180 ml Output Urine Total 4900 ml # Voids 1 General Appearance: Alert/Awake/No Acute Distress Neurological: No Gross deficits Eyes: Normal Extraocular Movement & Vison Cardiovascular: Normal Rhythm & Peripheral Pulses Respiratory: No Respiratory Distress Abdomen: Fundus Firm, Other (Soft, mildly tender on uterus but appropriately so, nondistended) Incision: Clean, Dressing Extremities: Reflexes (1/4), Edema (1+ bilateral LE); No Clonus Integumentary: Skin Intact without Lesions or Rash Psychological: Alert & Oriented X3, Appropriate Mood & Affect Result Diagram: 10/28/18 0753 10/28/18 0753 Assessment and Plan 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 Encouraged to rest when she can. Incision is well approximated and does not have redness, drainage, swelling or significant pain. Pt is voiding well after sims out yesterday. (2) Preeclampsia Status: Acute Assessment & Plan: Preeclampsia with severe blood pressure on admission and immediately . She is s/p 24hr magnesium which stopped at 0330 on 10/27/18. BP are stable with Procardia 90XL daily. They are mild range today. She has excellent urine output. Labs are again normal today. Continue to monitor closely. Plan for pt to most likely DC home tomorrow. Problem Qualifiers (1) Preeclampsia: Trimester: third trimester Qualified Codes: O14.93 - Unspecified pre- eclampsia, third trimester AGUILAR MARTINEZ CNM Oct 28, 2018 14:22
[2018-10-28 15:20] VITALS: BP 148/84
[2018-10-28 21:45] VITALS: BP 145/77
[2018-10-29 02:30] VITALS: BP 144/81
[2018-10-29] MEDS: IBUPROFEN 800 MG TAB PO SCH (04:45)
[2018-10-29 08:15] VITALS: BP 140/86
[2018-10-29] MEDS: NIFEdipine XL 30 MG TABCR PO SCH (09:11)
[2018-10-29] MEDS: DOCUSATE CALCIUM 240 MG CAP PO SCH (09:11)
[2018-10-29] MEDS: FAMOTIDINE 20 MG TAB PO SCH (09:11)
[2018-10-29] MEDS ORDERED: IBUP800T37 PO (09:40)
[2018-10-29] MEDS ORDERED: OXYC-865 PO (09:40)
--- NOTE | 2018-10-29 09:44 | OB/GYN Discharge Summary ---
Discharge Summary Reason for Hosp/Final Diag: (1) Status post delivery Hospital Course & Plan: 38-year-old primigravida who presented to labor and delivery for induction of labor secondary to preeclampsia. Patient did undergo induction and had Cytotec and cervical ripening balloon. Patient underwent epidural and after the epidural the patient began having repetitive late variable decelerations once blood pressures corrected the lates were improved but the patient would randomly have late decelerations. Patient was counseled for delivery and proceed accordingly. Patient remained on unit for 3 days she did have to have 90 mg of nifedipine by mouth XL to help maintain blood pressures. Patient was me ovulatory goals and was discharged home on post operative day #3. (2) Preeclampsia Status: Acute Lates Vital Signs Vital Signs Date Time Temp Pulse Resp B/P (MAP) Pulse Ox O2 Delivery O2 Flow Rate FiO2 10/29/18 02:30 97.1 98 18 144/81 (102) 94 10/28/18 21:45 Room Air 10/26/18 06:21 2.0 Weight (Pounds): 225 Weight (Ounces): 3.0 Result Diagram: 10/28/18 0753 10/28/18 0753 Condition: Improved Discharge: Home Home Meds Active Scripts Oxycodone Hcl/Acetaminophen (PERCOCET 5-325 MG TABLET) 1 Each Tablet, 1-2 TAB PO Q6H PRN for PAIN, #30 TAB 0 Refills Prov:FLOYD NOWAK DO 10/29/18 Nifedipine (PROCARDIA XL) 60 Mg Tab.er.24, 60 MG PO QDAY, #15 TAB 3 Refills Prov:FLOYD NOWAK DO 10/22/18 Reported Medications Aspirin (ASPIRIN) 81 Mg Tab.chew, 81 MG PO QDAY, TAB.CHEW 07/01/18 Pnv #116/Iron Fumarate/Fa/Dha (EXPECTA COMBO PACK) 1 Each Combo..pkg 07/01/18 Discontinued Reported Medications Hydrochlorothiazide (HYDROCHLOROTHIAZIDE) 25 Mg Tablet, 1 TAB PO QDAY, TAB 04/23/18 Discontinued Scripts Nifedipine (NIFEDIPINE ER) 30 Mg Tab.er.24, 60 MG PO QDAY, #30 TAB 6 Refills Prov:FLOYD NOWAK DO 10/18/18 Follow up in: 6 wks PP or PO, 2 wks PO, 5-7 days Discharge Diet: As Tolerates Discharge Activity: As Tolerates, No Heavy Lifting x 6 wks, No Heavy Lifting > 10lb Special Instructions: Problem Qualifiers (1) Preeclampsia: Trimester: third trimester Qualified Codes: O14.93 - Unspecified pre- eclampsia, third trimester FLOYD NOWAK DO Oct 29, 2018 09:44
[2018-10-29] MEDS ORDERED: NIFE90TA51 PO (10:55)
--- NOTE | 2018-10-29 11:00 | OB/GYN Progress Note ---
OB Subjective Progress Notes Subjective Doing good postop day #3 from primary low-transverse section. Patient's blood pressure is improved with 90 mg of Procardia extended release by mouth daily in a.m. Pain controlled with by mouth pain medications. Some difficulty with breast-feeding. Ovulatory and room and Victor. No issues bleeding GI: NEG Nausea, NEG Vomiting, NEG Flatus, NEG Bowel Movement : Voiding Well, Vaginal Bleeding, Scant Pain: Mild, Comfortable, Tolerating PO Pain Meds Neurological: No Headache, No Other Eyes: No Visual Disturbances OB Objective Physical Exam Vital Signs Date Time Temp Pulse Resp B/P (MAP) Pulse Ox O2 Delivery O2 Flow Rate FiO2 10/29/18 02:30 97.1 98 18 144/81 (102) 94 10/28/18 21:45 Room Air 10/26/18 06:21 2.0 l Intake and Output 10/29/18 07:00 Intake Total 120 ml Balance 120 ml Intake Oral 120 ml General Appearance: Alert/Awake/No Acute Distress Neurological: No Gross deficits Eyes: Normal Extraocular Movement & Vison Cardiovascular: Normal Rhythm & Peripheral Pulses Respiratory: No Respiratory Distress Abdomen: Fundus Firm, Other (Soft, mildly tender on uterus but appropriately so, nondistended) Incision: Clean, Dry, Intact, Other (steri-strips) Extremities: Reflexes (1/4), Edema (1+ bilateral LE); No Clonus Integumentary: Skin Intact without Lesions or Rash Psychological: Alert & Oriented X3, Appropriate Mood & Affect Result Diagram: 10/28/18 0753 10/28/18 0753 Assessment and Plan 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 Follow-up in 1 week for blood pressure check. Patient taking Procardia 90 mg XL will recheck in 1 week. (2) Preeclampsia Status: Acute Assessment & Plan: Plan for discharge today. Patient follow up in 1 week for blood pressure check. Pain medications since [facility]. [facility] patient request. Problem Qualifiers (1) Preeclampsia: Trimester: third trimester Qualified Codes: O14.93 - Unspecified pre- eclampsia, third trimester FLOYD NOWAK Oct 29, 2018 11:00
[2018-10-29] MEDS ORDERED: NIFE90TA40 PO (11:03)
[2018-10-29] MEDS ORDERED: IBUPROFEN 800 MG TAB PO SCH (13:00)
[2018-10-29 14:53] VITALS: BP 136/81
== END 2018-10-29 19:10 | disposition home or self-care (01) | DRG 807 ==
LOC: OB 22:32
PROVIDERS: ADMIT Student in an Organized Health Care Education/Training Program; ATTEND Student in an Organized Health Care Education/Training Program
PROC: 10907ZC Drainage of Amniotic Fluid, Therapeutic from Products of Conception, Via Natural or Artificial Opening (ICD-10-PCS; 2018-10-26)
PROC: 10H07YZ Insertion of Other Device into Products of Conception, Via Natural or Artificial Opening (ICD-10-PCS; 2018-10-26)
PROC: 4A1H74Z Monitoring of Products of Conception, Cardiac Electrical Activity, Via Natural or Artificial Opening (ICD-10-PCS; 2018-10-26)
PROC: 10E0XZZ Delivery of Products of Conception, External Approach (ICD-10-PCS; principal; 2018-10-26 03:42)
DX: O11.4 Pre-existing hypertension with pre-eclampsia, complicating childbirth (principal); Z37.0 Single live birth; O77.0 Labor and delivery complicated by meconium in amniotic fluid; E66.9 Obesity, unspecified; O76 Abnormality in fetal heart rate and rhythm complicating labor and delivery; Z3A.37 37 weeks gestation of pregnancy
CPT/HCPCS: 36415; 82040; 82247; 82310; 82374; 82435; 82565; 82570; 82947; 84075; 84132; 84155; 84156; 84295; 84450; 84460; 84520; 85025; 85027; 86850; 86900; 86901; C1726; J1885; J2001; J2370; J2405; J2590; J2704; J2765; J3010; J3475; J7030; J7120